=== PATIENT | female | born 1995 | race Caucasian/White ===

== ENCOUNTER 2018-10-03 20:27 | Emergency (ER) | payer OTHER ==
--- NOTE | 2018-10-03 20:46 | PDOC ---
Rapid Medical Evaluation Time Seen by Provider: 10/03/18 20:42 Medical Evaluation: Allergies Allergy/AdvReac Type Severity Reaction Status Date / Time No Known Allergies Allergy Verified 11/17/11 20:43 10/03/18 20:42 I have performed a brief in-person evaluation of this patient. The patient presents with a chief complaint of: "I think I have the flu", she c/ o lightheadedness, nasal congestion, runny nose, lack of focus since last night. No fever/chills, no NVD. 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 NO recent travel. Pt wants to get etsted for the flu Pertinent physical exam findings: in NAD, AAO X3. I have ordered the following: Flu swab The patient will proceed to the ED for further evaluation Discharge Disposition - Diagnosis Nasal congestion - Referrals - Patient Instructions - Post Discharge Activity
[2018-10-03 20:51] VITALS: BP 130/80; PULSE 81; TEMP 98.1; BMI 32.6
--- NOTE | 2018-10-03 21:12 | PDOC ---
History of Present Illness - General Chief Complaint: Cold Symptoms Stated Complaint: FLU Time Seen by Provider: 10/03/18 20:42 - History of Present Illness Initial Comments: 10/03/18 21:12 23-year-old female complains of nose congestion and cough times one day Past History - Past Medical History Allergies/Adverse Reactions: Allergies Allergy/AdvReac Type Severity Reaction Status Date / Time No Known Allergies Allergy Verified 10/03/18 20:45 Home Medications: Ambulatory Orders NK [No Known Home Medication] 10/03/18 Asthma: Yes COPD: No - Immunization History Immunization Up to Date: Yes - Suicide/Smoking/Psychosocial Hx Smoking Status: No Smoking History: Never smoked Have you smoked in the past 12 months: No Number of Cigarettes Smoked Daily: 0 Information on smoking cessation initiated: No Hx Alcohol Use: Yes (social) Drug/Substance Use Hx: No Review of Systems - Review of Systems Constitutional: No: Fever HEENTM: Yes: Nose Congestion Respiratory: Yes: Cough *Physical Exam - Vital Signs Last Vital Signs Temp Pulse Resp BP Pulse Ox 98.1 F 81 18 130/80 100 10/03/18 20:43 10/03/18 20:43 10/03/18 20:43 10/03/18 20:43 10/03/18 20:43 - Physical Exam Comments: 10/03/18 21:12 HEAD: NC/AT EYES: Conjuntiva clear Ears: Canals and TM's normal NOSE: No d/c THROAT: Moist mucous membrances, oral pharanx clear, uvula midline NECK: Supple without adenopathy CARDIAC: S1 S2 LUNGS: CTA Full and Equal breath sounds ABDOMEN: Soft NT ND MS: Full ROM in all joints without edema NEUROLOGIC: No gross sensory or motor deficits, NVID SKIN: Normal color and temperature no lesions or rashes Moderate Sedation - Procedure Monitoring Vital Signs: Procedure Monitoring Vital Signs Temperature 98.1 F 10/03/18 20:43 Pulse Rate 81 10/03/18 20:43 Respiratory Rate 18 10/03/18 20:43 Blood Pressure 130/80 10/03/18 20:43 O2 Sat by Pulse Oximetry (%) 100 10/03/18 20:43 *DC/Admit/Observation/Transfer Diagnosis at time of Disposition: Nasal congestion, Upper respiratory infection - Discharge Dispostion Disposition: HOME Condition at time of disposition: Stable Decision to Admit order: No - Referrals Referrals: Lynnette Guzman [Primary Care Provider] - - Patient Instructions Printed Discharge Instructions: DI for Viral Upper Respiratory Infection -- Adult Additional Instructions: Return to the emergency room should symptoms worsen or go unresolved. Please follow-up with your primary care physician in one to 2 days for further evaluation and treatment options. Tylenol and Motrin for for fever and body aches, Mucinex DM for cough. You can only take Motrin and Mucinex DM if you are not - Post Discharge Activity
== END 2018-10-03 21:27 | disposition home or self-care (01) ==
LOC: JER 20:27
DX: J06.9 Acute upper respiratory infection, unspecified (principal)
CPT/HCPCS: 87804; 99281-25

== ENCOUNTER 2019-01-16 19:36 | Emergency (ER) | payer BC, OTHER ==
[2019-01-16] MEDS ORDERED: IBUPROFEN 600 MG TABLET (FP) PO ONE ×2 (20:03→20:33)
--- NOTE | 2019-01-16 20:03 | PDOC ---
Rapid Medical Evaluation Time Seen by Provider: 01/16/19 20:01 Medical Evaluation: Allergies Allergy/AdvReac Type Severity Reaction Status Date / Time No Known Allergies Allergy Verified 10/03/18 20:45 01/16/19 20:02 The patient is a 23 y/o F who presents to the ED with 5 days of sore throat and swollen glands. Also admits to cough. No PMH Exam: Erythematous tonsils without exudate or edema Orders: Rapid strep, motrin Pt to proceed to the ED for further evaluation Discharge Disposition - Diagnosis Pharyngitis - Referrals - Patient Instructions - Post Discharge Activity
[2019-01-16 20:04] VITALS: BP 161/90; PULSE 87; TEMP 98; BMI 39.2
[2019-01-16] MEDS ORDERED: DEXAMETHASONE LIQUID 0.5 MG/5 ML 240 ML BULK BOTTLE PO ONE (20:32)
[2019-01-16] MEDS ORDERED: DEXAMETHASONE SOD PHOSPHATE 4 MG/1 ML VIAL ONE (20:33)
--- NOTE | 2019-01-16 20:33 | PDOC ---
History of Present Illness - General Chief Complaint: Sore Throat Stated Complaint: THROAT PAIN Time Seen by Provider: 01/16/19 20:01 - History of Present Illness Initial Comments: 01/16/19 20:33 23-year-old female without comorbidities presents for evaluation of sore throat 6 days no systemic symptoms Past History - Past Medical History Allergies/Adverse Reactions: Allergies Allergy/AdvReac Type Severity Reaction Status Date / Time No Known Allergies Allergy Verified 10/03/18 20:45 Home Medications: Ambulatory Orders NK [No Known Home Medication] 10/03/18 Asthma: Yes COPD: No - Immunization History Immunization Up to Date: Yes - Suicide/Smoking/Psychosocial Hx Smoking Status: No Smoking History: Unknown if ever smoked Have you smoked in the past 12 months: No Number of Cigarettes Smoked Daily: 0 Information on smoking cessation initiated: No Hx Alcohol Use: No Drug/Substance Use Hx: No Review of Systems - Review of Systems HEENTM: Yes: Throat Pain, Difficulty Swallowing *Physical Exam - Vital Signs Last Vital Signs Temp Pulse Resp BP Pulse Ox 98.0 F 87 16 161/90 100 01/16/19 20:02 01/16/19 20:02 01/16/19 20:02 01/16/19 20:02 01/16/19 20:02 - Physical Exam Comments: 01/16/19 20:33 HEAD: NC/AT EYES: Conjuntiva clear Ears: Canals and TM's normal NOSE: No d/c THROAT: Moist mucous membrances, oral pharanx erythemic without exudate, uvula midline NECK: Supple without adenopathy CARDIAC: S1 S2 LUNGS: CTA Full and Equal breath sounds ABDOMEN: Soft NT ND MS: Full ROM in all joints without edema NEUROLOGIC: No gross sensory or motor deficits, NVID SKIN: Normal color and temperature no lesions or rashes Medical Decision Making - Medical Decision Making 01/16/19 20:34 Will hold off on treatment for now based on length of symptoms prior to presentation. Rapid negative cx sent. *DC/Admit/Observation/Transfer Diagnosis at time of Disposition: Pharyngitis, Viral pharyngitis - Discharge Dispostion Disposition: HOME Condition at time of disposition: Stable Decision to Admit order: No - Referrals Referrals: Lynnette Guzman [Primary Care Provider] - - Patient Instructions Printed Discharge Instructions: Viral Pharyngitis, DI for Viral Pharyngitis Additional Instructions: Rapid strep was negative, culture was sent. He will given a long-acting steroid in the emergency room which will help with her pain. Should you require antibiotics we will call you. Please follow-up with your primary care physician in one to 2 days for further evaluation and treatment options. Tylenol for pain. Avoid anti-inflammatories such as Advil Motrin Aleve and ibuprofen. Warm salt water gargles 5-6 times a day will help with your throat pain. - Post Discharge Activity
== END 2019-01-16 20:47 | disposition home or self-care (01) ==
LOC: JERFT 19:36
DX: J02.8 Acute pharyngitis due to other specified organisms (principal); B97.89 Other viral agents as the cause of diseases classified elsewhere; J45.909 Unspecified asthma, uncomplicated
CPT/HCPCS: 87070; 87077; 87880; 99281-25

== ENCOUNTER 2020-03-03 17:12 | Emergency (ER) | payer BC, OTHER ==
[2020-03-03 17:24] VITALS: BP 157/86; PULSE 118; TEMP 99.5; BMI 31.1
--- NOTE | 2020-03-03 17:48 | PDOC ---
History of Present Illness - General Chief Complaint: Pain, Acute Stated Complaint: NAUSEA/L SIDE BACK/NECK /LEG PAIN/WEAKNESS Time Seen by Provider: 03/03/20 17:40 - History of Present Illness Initial Comments: 03/03/20 17:46 25 y/o F w/o CM on oral contraception presents for evaluation of nausea and diarrhea 3 episodes of watery stool today, no blood Past History - Medical History Allergies/Adverse Reactions: Allergies Allergy/AdvReac Type Severity Reaction Status Date / Time No Known Allergies Allergy Verified 03/03/20 17:20 Home Medications: Ambulatory Orders NK [No Known Home Medication] 10/03/18 Asthma: Yes COPD: No - Immunization History Immunization Up to Date: Yes - Psycho-Social/Smoking History Smoking Status: No Smoking History: Never smoked Have you smoked in the past 12 months: No Number of Cigarettes Smoked Daily: 0 - Substance Abuse Hx (Audit-C & DAST Scrn) How often the patient has a drink containing alcohol: Never Score: In Men: 4 or > Positive; In Women: 3 or > Positive: 0 Screen Result (Pos requires Nsg. Audit-10AR): Negative In the last yr the pt used illegal drug/Rx for NonMed reason: Yes Score: Yes response is considered Positive: 1 Screen Result (Positive result requires Nsg. DAST-10): Positive Review of Systems - Review of Systems Constitutional: Yes: Chills, Fever, Malaise, Night Sweats ABD/GI: Yes: Diarrhea, Nausea. No: Blood Streaked Bowels, Rectal Bleeding, Vomiting *Physical Exam - Vital Signs Last Vital Signs Temp Pulse Resp BP Pulse Ox 99.5 F 118 H 20 157/86 100 03/03/20 17:21 03/03/20 17:21 03/03/20 17:21 03/03/20 17:21 03/03/20 17:21 - Physical Exam General Appearance: Yes: Nourished, Appropriately Dressed. No: Apparent Distress HEENT: positive: Symmetrical Neck: positive: Supple Respiratory/Chest: positive: Normal Breath Sounds. negative: Respiratory Distress Cardiovascular: positive: Regular Rhythm Gastrointestinal/Abdominal: positive: Normal Bowel Sounds, Flat, Soft. negative: Tender, Organomegaly, Tenderness, Hepatomegaly, Spleenomegaly Musculoskeletal: positive: Normal Inspection Extremity: positive: Normal Inspection Integumentary: positive: Normal Color, Dry, Warm Neurologic: positive: bleacher groundwood pulp II-XII NML intact, Fully Oriented, Alert ED Treatment Course - LABORATORY CBC & Chemistry Diagram: 03/03/20 18:07 03/03/20 18:07 Medical Decision Making - Medical Decision Making 03/03/20 19:24 Supportive care for viral gastroenteritis follow-up with primary care physician in 1 to 2 days without fail Patient is feeling better after fluid and Tylenol I have reviewed the pathophysiology with the patient. They are in agreement with the treatment plan all questions were answered to their satisfaction. Understanding for follow-up without fail was also conveyed to the patient. Again they are in agreement. Discharge - Discharge Information Problems reviewed: Yes Clinical Impression/Diagnosis: Viral gastroenteritis - Follow up/Referral Referrals: Lynnette Guzman [Primary Care Provider] - - Patient Discharge Instructions Additional Instructions: Return to the emergency room for worsening symptoms and without fail follow-up with your primary care physician in 1 to 2 days for further evaluation and treatment options. - Post Discharge Activity
[2020-03-03] MEDS ORDERED: SODIUM CHLORIDE 0.9% 500 ML INFUS.BAG IV ONE (17:49)
[2020-03-03] MEDS ORDERED: ACETAMINOPHEN 1000 MG/100 ML VIAL (NON FORMULARY) IVPB ONE (17:49)
[2020-03-03] MEDS ORDERED: ACETAMINOPHEN INJECTION 100 ML IVPB ONE (17:59)
[2020-03-03 18:18] LABS: BASO % 0.6 % (0-2.0); EOS % 0.1 % (0-4.5); HEMATOCRIT 41.2 % (32.4-45.2); HEMOGLOBIN 13.5 GM/dL (10.7-15.3); LYMPH % 11.4 % (8-40); MCH 28.1 pg (25.7-33.7); MCHC 32.8 g/dl (32.0-36.0); MEAN CELL VOLUME 85.7 fl (80-96); MEAN PLT VOLUME 8.6 fl (7.5-11.1); MONO % 6.9 % (3.8-10.2); PLATELET COUNT 314 K/MM3 (134-434); RBC 4.81 M/mm3 (3.60-5.2); RDW 13.5 % (11.6-15.6); WHITE BLOOD COUNT 22.1 K/mm3 (4.0-10.0)
[2020-03-03 18:29] LABS: INR 1.11 (0.83-1.09); PROTHROMBIN TIME (PATIENT) 13.1 SEC (9.7-13.0)
[2020-03-03 18:47] LABS: PLATELET ESTIMATE ADEQUATE
[2020-03-03 18:50] LABS: ALBUMIN 3.8 g/dl (3.4-5.0); BILIRUBIN,TOTAL 1.9 mg/dL (0.2-1); BLOOD UREA NITROGEN 7.5 mg/dL (7-18); CALCIUM 9.8 mg/dL (8.5-10.1); CREATININE 0.9 mg/dL (0.55-1.3); POTASSIUM 4.3 mmol/L (3.5-5.1); TOT PROT 7.8 g/dl (6.4-8.2)
--- NOTE | 2020-03-04 10:13 | EKG ---
Test Reason : Blood Pressure : / mmHG Vent. Rate : 084 BPM Atrial Rate : 084 BPM P-R Int : 148 ms QRS Dur : 076 ms QT Int : 356 ms P-R-T Axes : 026 071 037 degrees QTc Int : 420 ms NORMAL SINUS RHYTHM WITH SINUS ARRHYTHMIA POSSIBLE LEFT ATRIAL ENLARGEMENT NONSPECIFIC ST ABNORMALITY ABNORMAL ECG NO PREVIOUS ECGS AVAILABLE Confirmed by Roger Trammell MD ([id number]) on 03/04/2020 10:12:41 AM Referred By: Confirmed By:Roger Trammell MD
== END 2020-03-03 20:42 | disposition home or self-care (01) ==
LOC: JER 17:12
PROC: 3E033GC Introduction of Other Therapeutic Substance into Peripheral Vein, Percutaneous Approach (ICD-10-PCS; principal; 2020-03-03)
DX: A08.4 Viral intestinal infection, unspecified (principal)
CPT/HCPCS: 36415; 80053; 83690; 84703; 85025; 85610; 93005; 93010; 96374; 99284-25; J0131

== ENCOUNTER 2020-03-06 13:39 | Inpatient (IN) | payer OTHER ==
[2020-03-06] MEDS ORDERED: SODIUM CHLORIDE 2,790 ML IV ONE (14:36)
[2020-03-06 15:25] LABS: BASO % 0.5 % (0-2.0); EOS % 0.1 % (0-4.5); HEMATOCRIT 35.8 % (32.4-45.2); HEMOGLOBIN 11.8 GM/dL (10.7-15.3); LYMPH % 12.1 % (8-40); MEAN PLT VOLUME 9.2 fl (7.5-11.1); MONO % 10.8 % (3.8-10.2); NEUT % 76.5 % (42.8-82.8); PLATELET COUNT 306 K/MM3 (134-434); RBC 4.21 M/mm3 (3.60-5.2); WHITE BLOOD COUNT 17.5 K/mm3 (4.0-10.0)
--- NOTE | 2020-03-06 15:30 | PDOC ---
History of Present Illness - General Chief Complaint: SIRS, Suspected/Possible Stated Complaint: FEVER/ABD PAIN Time Seen by Provider: 03/06/20 15:00 - History of Present Illness Initial Comments: 03/06/20 16:52 25yo F bouncebroxi p/w ABD pain, fever, and diarrhea. She had a democrat at home on Tuesday where she shared a hookah hose. Tuesday she came to ED w/ fever and ABD pain. Was sent home w/ tylenol after IV hydration. Tuesday she had several bouts of watery diarrhea. Tuesday she did not have a BM. Today she had a poorly f ormed solid BM. She has had a fever everyday this week. The ABD pain is LLQ, is diffuse and sharp, worst is 7/10, aggrevated by nothing and better w/ flatus and BM. She also reports increased burping and flatus this week. PMH: none PSH: none SHx: +tobacco (hookah) + marijuana, + EtOH use (drinks ~1bottle tequila on the nights she does drink, which she states is about 1day/week). Denies other ilicit drug use. +sexually active, on OCP. ROS +feverish +ABD pain PE general: NAD, AAO Lungs: CTAB CV: normal rate regular rhythm, no murmurs ABD: non-distended, no spider angioma, +bowel sounds, non-tender, no CVA tenderness. : non-inflamed, nonfriable cervical os, no exudate, no erythema in the canal or the os. No CMT or adnexal tenderness. A: 25yo bounceback female w/ fever, ABD pain, and diarrhea. Plan: CT ABD w/ contrast U preg, G/C, Blood Cx IV tylenol IV hydration w/ NSS. 03/06/20 17:05 03/06/20 18:41 Past History - Medical History Allergies/Adverse Reactions: Allergies Allergy/AdvReac Type Severity Reaction Status Date / Time No Known Allergies Allergy Verified 03/06/20 14:09 Home Medications: Ambulatory Orders Ertapenem Sodium [Ertapenem] 1 gm IJ DAILY #10 vial 03/11/20 Asthma: Yes COPD: No - Immunization History Immunization Up to Date: Yes - Psycho-Social/Smoking History Smoking Status: No Smoking History: Never smoked Have you smoked in the past 12 months: No Number of Cigarettes Smoked Daily: 0 *Physical Exam - Vital Signs Last Vital Signs Temp Pulse Resp BP Pulse Ox 101.7 F H 117 H 18 118/89 100 03/06/20 13:50 03/06/20 13:50 03/06/20 13:50 03/06/20 13:50 03/06/20 13:50 ED Treatment Course - LABORATORY CBC & Chemistry Diagram: 03/10/20 10:55 03/10/20 10:55 Discharge - Discharge Information Problems reviewed: Yes Clinical Impression/Diagnosis: Pyelonephritis Condition: Improved Disposition: HOME - Admission No - Follow up/Referral - Patient Discharge Instructions - Post Discharge Activity
[2020-03-06 15:32] LABS: INR 1.19 (0.83-1.09); PROTHROMBIN TIME (PATIENT) 14.1 SEC (9.7-13.0)
[2020-03-06 15:35] LABS: ACTIVATED PTT 31.2 SECONDS (25.2-36.5); EPI CELLS 20 /uL (0-25.1); HYALINE CASTS 3 /uL (0-3.1); URINE APPEARANCE CLEAR; URINE BACTERIA 218 /uL (0-1359); URINE BILIRUBIN 1+ (NEGATIVE); URINE COLOR DK YELLOW; URINE GLUCOSE (UA) TRACE (NEGATIVE); URINE KETONE TRACE (NEGATIVE); URINE LEUK ESTERASE TRACE (NEGATIVE); URINE NITRITE NEGATIVE (NEGATIVE); URINE PROTEIN 2+ (NEGATIVE); URINE RBC 42 /uL (0-23.9); URINE WBC 36 /uL (0-25.8)
[2020-03-06 15:53] LABS: ALBUMIN 3.2 g/dl (3.4-5.0); ALK PHOS 119 U/L (45-117); ANION GAP 8 MMOL/L (8-16); BILIRUBIN,TOTAL 1.1 mg/dL (0.2-1); BLOOD UREA NITROGEN 3.8 mg/dL (7-18); CALCIUM 9.2 mg/dL (8.5-10.1); CHLORIDE 101 mmol/L (98-107); CO2 25 mmol/L (21-32); CREATININE 0.8 mg/dL (0.55-1.3); GLUCOSE,RANDOM 109 mg/dL (74-106); POTASSIUM 3.6 mmol/L (3.5-5.1); SGOT/AST 13 U/L (15-37); SGPT/ALT 14 U/L (13-61); SODIUM 134 mmol/L (136-145); TOT PROT 7.2 g/dl (6.4-8.2)
[2020-03-06] MEDS ORDERED: ACETAMINOPHEN 1000 MG/100 ML VIAL (NON FORMULARY) IVPB ONE ×2 (17:00→21:18)
--- NOTE | 2020-03-06 17:03 | PDOC ---
Documentation entered by Thaddeus Benson SCRIBE, acting as scribe for Oliva Watson MD. Oliva Watson MD: This documentation has been prepared by the Inocente ellis Nirvannie, SCRIBE, under my direction and personally reviewed by me in its entirety. I confirm that the documentation accurately reflects all work, treatment, procedures, and medical decision making performed by me. Attending Attestation - Resident Resident Name: Dat Loo - ED Attending Attestation I have performed the following: I have examined & evaluated the patient, The case was reviewed & discussed with the resident, I agree w/resident's findings & plan, Exceptions are as noted - HPI HPI: 03/06/20 16:14 The patient is a 25 year old female with no significant past medical history who presents to the ED with 4 days of fevers and diarrhea. Per patient, her symptoms initially onset a few days after attending a dinner alliance party. Allergies: NKDA - Physicial Exam PE: 03/06/20 17:01 Agree with resident exam. Patient is alert and oriented and in no acute distress. lungs are clear. CV rrr no m/r/g abdomen soft, non tender, non distended no guarding or rebound. - Medical Decision Making 03/06/20 17:02 Pt presents to the ED complaining of abdominal pain and fever. Differential includes PID, less likely ectopic, UTI, other intraabdominal pathology. Discharge - Discharge Information Problems reviewed: Yes Clinical Impression/Diagnosis: Pyelonephritis Condition: Stable - Follow up/Referral - Patient Discharge Instructions - Post Discharge Activity
[2020-03-06 17:10] LABS: HCG,QUALITATIVE URINE NEGATIVE
[2020-03-06] MEDS ORDERED: NALOXONE HCL 0.4 MG/ML VIAL IVPUSH ONE (17:47)
[2020-03-06] MEDS ORDERED: ONDANSETRON 4 MG/2 ML VIAL IVPUSH ONE (17:49)
[2020-03-06] MEDS ORDERED: CEFTRIAXONE 1 GM in DEXTROSE 5%-WATER - 100 ML IVPB ONE (18:52)
[2020-03-06] MEDS ORDERED: CEFTRIAXONE 1 GM/50 ML BAG ONE (19:35)
--- NOTE | 2020-03-06 19:55 | PDOC ---
*Physical Exam - Vital Signs Last Vital Signs Temp Pulse Resp BP Pulse Ox 102.7 F H 95 H 16 132/69 100 03/06/20 17:00 03/06/20 17:00 03/06/20 17:00 03/06/20 17:00 03/06/20 17:00 Heart Score/ECG Review - ECG Intrepretation Comment:: 03/06/20 21:23 sinus at 94, nl axis, t wave inversions III which are nonspecific, no acute st c hanges ED Treatment Course - LABORATORY CBC & Chemistry Diagram: 03/06/20 15:00 03/06/20 15:00 - ADDITIONAL ORDERS Additional order review: Laboratory Results 03/06/20 03/06/20 03/06/20 15:00 15:00 15:00 PT with INR INR PTT (Actin FS) Sodium 134 L Potassium 3.6 Chloride 101 Carbon Dioxide 25 Anion Gap 8 BUN 3.8 L Creatinine 0.8 Est GFR (CKD-EPI)AfAm 119.60 Est GFR (CKD-EPI)NonAf 103.19 Random Glucose 109 H Lactic Acid 1.6 Calcium 9.2 Total Bilirubin 1.1 H AST 13 L ALT 14 Alkaline Phosphatase 119 H Troponin I < 0.02 Total Protein 7.2 Albumin 3.2 L Urine Color Dk yellow Urine Appearance Clear Urine pH 6.0 Ur Specific [place] 1.021 Urine Protein 2+ H Urine Glucose (UA) Trace Urine Ketones Trace H Urine Blood 1+ H Urine Nitrite Negative Urine Bilirubin 1+ H Urine Urobilinogen 2.0 H Ur Leukocyte Esterase Trace Urine WBC (Auto) 36 Urine RBC (Auto) 42 Urine Casts (Auto) 3 U Epithel Cells (Auto) 20 Urine Bacteria (Auto) 218 Urine HCG, Qual Negative 03/06/20 15:00 PT with INR 14.10 H INR 1.19 H PTT (Actin FS) 31.2 Sodium Potassium Chloride Carbon Dioxide Anion Gap BUN Creatinine Est GFR (CKD-EPI)AfAm Est GFR (CKD-EPI)NonAf Random Glucose Lactic Acid Calcium Total Bilirubin AST ALT Alkaline Phosphatase Troponin I Total Protein Albumin Urine Color Urine Appearance Urine pH Ur Specific [place] Urine Protein Urine Glucose (UA) Urine Ketones Urine Blood Urine Nitrite Urine Bilirubin Urine Urobilinogen Ur Leukocyte Esterase Urine WBC (Auto) Urine RBC (Auto) Urine Casts (Auto) U Epithel Cells (Auto) Urine Bacteria (Auto) Urine HCG, Qual 03/06/20 15:00 RBC 4.21 MCV 85.0 MCHC 33.0 RDW 13.0 MPV 9.2 Neutrophils % 76.5 Lymphocytes % 12.1 Monocytes % 10.8 H Eosinophils % 0.1 Basophils % 0.5 - Medications Given in the ED: ED Medications Discontinued Medications Generic Name Dose Route Start Last Admin Trade Name Stanley PRN Reason Stop Dose Admin Acetaminophen 1,000 mg 03/06/20 17:00 03/06/20 17:00 Ofirmev Injection - IVPB 03/06/20 17:01 1,000 mg ONCE ONE Administration Sodium Chloride 2,790 mls @ 1,395 mls/hr 03/06/20 14:36 03/06/20 15:13 Normal Saline - 30 ml/kg infuse over 2 hr (2790 ml) 03/06/20 16:35 1,395 mls/hr IV Administration ONCE ONE Ceftriaxone Sodium 1 gm/ 100 mls @ 200 mls/hr 03/06/20 18:52 03/06/20 19:47 Dextrose IVPB 03/06/20 19:21 200 mls/hr ONCE ONE Administration Naloxone HCl 0.4 mg 03/06/20 17:47 03/06/20 19:47 Narcan - IVPUSH 03/06/20 17:48 Not Given ONCE ONE Ondansetron HCl 4 mg 03/06/20 17:49 03/06/20 19:47 Zofran Injection IVPUSH 03/06/20 17:50 Not Given ONCE ONE Medical Decision Making - Medical Decision Making 03/06/20 21:22 a/p: 25yo female with abd pain -pt signed out pending labs and ct pt with LLQ pain -upreg neg +uti pt with diarrhea -on ct with pt with acute pyelo -iv abx ordered -resident discussed the case with emory who accepts pt to service Discharge - Discharge Information Problems reviewed: Yes Clinical Impression/Diagnosis: Pyelonephritis Condition: Fair - Admission Yes - Follow up/Referral - Patient Discharge Instructions - Post Discharge Activity
--- NOTE | 2020-03-06 20:16 | PDOC ---
*Physical Exam - Vital Signs Last Vital Signs Temp Pulse Resp BP Pulse Ox 102.7 F H 95 H 16 119/66 95 03/06/20 17:00 03/06/20 19:55 03/06/20 17:00 03/06/20 19:55 03/06/20 19:55 ED Treatment Course - LABORATORY CBC & Chemistry Diagram: 03/06/20 15:00 03/06/20 15:00 - ADDITIONAL ORDERS Additional order review: Laboratory Results 03/06/20 03/06/20 03/06/20 15:00 15:00 15:00 PT with INR INR PTT (Actin FS) Sodium 134 L Potassium 3.6 Chloride 101 Carbon Dioxide 25 Anion Gap 8 BUN 3.8 L Creatinine 0.8 Est GFR (CKD-EPI)AfAm 119.60 Est GFR (CKD-EPI)NonAf 103.19 Random Glucose 109 H Lactic Acid 1.6 Calcium 9.2 Total Bilirubin 1.1 H AST 13 L ALT 14 Alkaline Phosphatase 119 H Troponin I < 0.02 Total Protein 7.2 Albumin 3.2 L Urine Color Dk yellow Urine Appearance Clear Urine pH 6.0 Ur Specific [place] 1.021 Urine Protein 2+ H Urine Glucose (UA) Trace Urine Ketones Trace H Urine Blood 1+ H Urine Nitrite Negative Urine Bilirubin 1+ H Urine Urobilinogen 2.0 H Ur Leukocyte Esterase Trace Urine WBC (Auto) 36 Urine RBC (Auto) 42 Urine Casts (Auto) 3 U Epithel Cells (Auto) 20 Urine Bacteria (Auto) 218 Urine HCG, Qual Negative 03/06/20 15:00 PT with INR 14.10 H INR 1.19 H PTT (Actin FS) 31.2 Sodium Potassium Chloride Carbon Dioxide Anion Gap BUN Creatinine Est GFR (CKD-EPI)AfAm Est GFR (CKD-EPI)NonAf Random Glucose Lactic Acid Calcium Total Bilirubin AST ALT Alkaline Phosphatase Troponin I Total Protein Albumin Urine Color Urine Appearance Urine pH Ur Specific [place] Urine Protein Urine Glucose (UA) Urine Ketones Urine Blood Urine Nitrite Urine Bilirubin Urine Urobilinogen Ur Leukocyte Esterase Urine WBC (Auto) Urine RBC (Auto) Urine Casts (Auto) U Epithel Cells (Auto) Urine Bacteria (Auto) Urine HCG, Qual 03/06/20 15:00 RBC 4.21 MCV 85.0 MCHC 33.0 RDW 13.0 MPV 9.2 Neutrophils % 76.5 Lymphocytes % 12.1 Monocytes % 10.8 H Eosinophils % 0.1 Basophils % 0.5 - Medications Given in the ED: ED Medications Discontinued Medications Generic Name Dose Route Start Last Admin Trade Name Stanley PRN Reason Stop Dose Admin Acetaminophen 1,000 mg 03/06/20 17:00 03/06/20 17:00 Ofirmev Injection - IVPB 03/06/20 17:01 1,000 mg ONCE ONE Administration Sodium Chloride 2,790 mls @ 1,395 mls/hr 03/06/20 14:36 03/06/20 15:13 Normal Saline - 30 ml/kg infuse over 2 hr (2790 ml) 03/06/20 16:35 1,395 mls/hr IV Administration ONCE ONE Ceftriaxone Sodium 1 gm/ 100 mls @ 200 mls/hr 03/06/20 18:52 03/06/20 19:47 Dextrose IVPB 03/06/20 19:21 200 mls/hr ONCE ONE Administration Naloxone HCl 0.4 mg 03/06/20 17:47 03/06/20 19:47 Narcan - IVPUSH 03/06/20 17:48 Not Given ONCE ONE Ondansetron HCl 4 mg 03/06/20 17:49 03/06/20 19:47 Zofran Injection IVPUSH 03/06/20 17:50 Not Given ONCE ONE Medical Decision Making - Medical Decision Making 03/06/20 20:15 Pt received on s/o from Dr. Loo. Seen here earlier in the week for pyelo and given PO abx outpatient. D/w Dr. Dickson who accepts the patient for admission for IV abx. Discharge - Discharge Information Problems reviewed: Yes Clinical Impression/Diagnosis: Pyelonephritis Condition: Fair - Admission Yes - Follow up/Referral - Patient Discharge Instructions - Post Discharge Activity
--- NOTE | 2020-03-06 20:20 | PN ---
Teaching Attending Note Name of Resident: Jude Lopes ATTENDING PHYSICIAN STATEMENT I saw and evaluated the patient. I reviewed the resident's note and discussed the case with the resident. I agree with the resident's findings and plan as documented. SUBJECTIVE: Patient is a 25 year old woman with a PMH of Tobacco use, Alcohol abuse and Savana diego use who presents to the ER with abdominal pain, fever and diarrhea for four days. She had a democrat at home on Tuesday where she shared a hookah hose. Tuesday she came to ER fever, diarrhea and abdominal pain on 03/03/2020 and was discharged with a diagnosis of viral gastroenteritis on Tylenol after IV hydration. The pain is in the LLQ, diffuse and sharp with 7/10 intensity. No identifiable aggravating factor, but feels better with flatus and bowel movement. She also reports increased burping and flatus this week. Patient is sexually active on oral contraceptive pill. Unemployed and lives at home with parents. LMP was February 23, 2020. Denies alcohol, tobacco or illicit drug use. No sick contacts or recent travels. Family history is unremarkable. OBJECTIVE: Alert Vital Signs Period Temp Pulse Resp BP Sys/Caceres Pulse Ox Last 24 Hr 101.7 F-102.7 F 95-117 16-18 118-132/66-89 95-100 HEENT: No Jaundice, eye redness or discharge, PERRLA, EOMI. Normocephalic, atraumatic. External ears are normal and hearing is grossly intact. No nasal discharge. Neck: Supple, nontender. No palpable adenopathy or thyromegaly. No JVD Chest: Good effort. Clear to auscultation and percussion. Heart: Regular. No S3, rub or murmur Abdomen: Not distended, soft, diffuse tenderness most marked in the LLQ; no HSM. No rebound or guarding. Normal bowel sounds. Pelvic examination performed by the ER staff: Non-inflamed, nonfriable cervical os, no exudate, no erythema in the canal or the os. No CMT or adnexal tenderness. Ext: Peripheral pulses intact. No leg edema. Skin: Warm and dry. No petechiae, rash or ecchymosis. Neuro: Alert. Oriented x3. CN 2-12 grossly intact. Sensation grossly intact in all four extremities and DTR are symmetric. Psych: Appropriate mood and affect. Good insight. Home Medications Medication Instructions Recorded NK [No Known Home Medication] 10/03/18 Abnormal Lab Results 03/06/20 03/06/20 03/06/20 15:00 15:00 15:00 WBC 17.5 H Absolute Neuts (auto) 13.4 H Monocytes % 10.8 H PT with INR 14.10 H INR 1.19 H Sodium BUN Random Glucose Total Bilirubin AST Alkaline Phosphatase Albumin Urine Protein 2+ H Urine Ketones Trace H Urine Blood 1+ H Urine Bilirubin 1+ H Urine Urobilinogen 2.0 H 03/06/20 15:00 WBC Absolute Neuts (auto) Monocytes % PT with INR INR Sodium 134 L BUN 3.8 L Random Glucose 109 H Total Bilirubin 1.1 H AST 13 L Alkaline Phosphatase 119 H Albumin 3.2 L Urine Protein Urine Ketones Urine Blood Urine Bilirubin Urine Urobilinogen Current Medications Generic Name Dose Route Start Last Admin Trade Name Freq PRN Reason Stop Dose Admin Acetaminophen 650 mg 03/06/20 22:18 Tylenol - PO Q4H PRN PAIN LEVEL 7 - 10 Enoxaparin Sodium 40 mg 03/07/20 10:00 Lovenox - SQ DAILY FANTASMA Dextrose/Sodium Chloride 1,000 mls @ 83 mls/hr 03/06/20 22:30 D5-Ns - IV ASDIR FANTASMA Piperacillin Sod/Tazobactam 50 mls @ 100 mls/hr 03/06/20 22:45 Sod 3.375 gm/ Dextrose IVPB Q4H FANTASMA Protocol Piperacillin Sod/Tazobactam 50 mls @ 100 mls/hr 03/06/20 23:30 Sod 3.375 gm/ Dextrose IVPB 03/07/20 18:29 Q4H-IV FANTASMA ASSESSMENT AND PLAN: 1. Pyelonephritis/?Renal abscess - CT abdomen/pelvis with IV contrast showed left pyelonephritis with possible lower pole abscess. Sepsis workup done and STI panel sent. CXR shows cardiomegaly with no evidence of acute lung disease. ER staff prescribed Tylenol, Ceftriaxone, Zofran and IV NS for the patient. In view of possible renal abscess, will treat with IV Zosyn 3.375 g IV q 4 hours pending culture report. Consult ID. Will get HbA1c and send any diarrheal stool for stool studies including C.diff. EKG shows NSR at 94/minute and QTc [address]-T wave changes. Viral testing for COVID-19 ordered and patient placed on airborne, droplet and contact isolation. Will continue comprehensive care for all of patients comorbid conditions. 2. Hypoalbuminemia - Possibly due to combined effects of proteinuria, malnutrition and inflammation associated with comorbid conditions. Will ensure adequate dietary protein intake and also consult lithopone mill worker. 3. Tobacco Use Counseled on risks associated with tobacco use. We will provide patient all the necessary assistance to facilitate smoking cessation and prescribe Nicotine patch. 4. Obesity Counseled on the risks associated with obesity. Will provide patient all the necessary assistance, counseling and positive reinforcement to facilitate weight loss. Consult lithopone mill worker. 5. Alcohol abuse - Implement [facility] alcohol withdrawal protocol and do neurochecks. Implement seizure, fall and aspiration precautions. Treat with IV Banana bag, thiamine and folic acid. Monitor and replete electrolytes (Ca,Mg,K,P). Counseled patient about abstaining from alcohol. Will consult catalog specialist and refer to alcohol detox upon discharge. 6. DVT prophylaxis - Lovenox 40 mg SQ q 24 hours. 7. Advance directives - Full code
[2020-03-06] MEDS ORDERED: KETOROLAC TROMETHAMINE 15 MG/ML VIAL IVPUSH ONE (21:35)
[2020-03-06] MEDS ORDERED: PIPERACILLIN/TAZOB 2.25 GM 2.25 GM in DEXTROSE 5%-WATER - 50 ML IVPB SCH (22:30)
[2020-03-06] MEDS ORDERED: KETOROLAC TROMETHAMINE 15 MG/ML VIAL ONE (22:37)
[2020-03-06] MEDS ORDERED: ACETAMINOPHEN INJECTION 100 ML IVPB ONE (22:37)
[2020-03-06] MEDS ORDERED: PIPERACILLIN/TAZOB 3.375 GM 3.375 GM in DEXTROSE 5%-WATER - 50 ML IVPB SCH (22:45)
--- NOTE | 2020-03-06 22:46 | HP ---
CHIEF COMPLAINT: I have severe abdominal pain PCP: Lynnette Guzman HISTORY OF PRESENT ILLNESS: This is a 25 year old female with no significant PMH, presents with LLQ abdominal pain for 4 days. She describes the pain as cramping , non radiating, constant pain, 7/10 @ ED and 10/10 at worse. Abdominal pain is associated with fever, Diarrhea, headache, lightheadedness, and loss of Appetite. It is relieved with Tylenol and exacerbated with greasy foods. She also reports that she came to ED previously on Tuesday with fever, headache, and dizziness and was given fluids and Tylenol and sent home. She reports that on Tuesday she had 8 episodes of diarrhea in 2hrs, which resolved with over the counter anti diarrheal medications. Today she came to the ED for worsening of her LLQ pain. ER course was notable for: (1) Abdominal pain secondary to acute pyelonephritis (2) (3) Recent Travel: Denies PAST MEDICAL HISTORY: + STI (C. trachomatis) 2 years ago treated with Antibiotics PAST SURGICAL HISTORY: Denies Social History: Smoking: no cigarettes, occasional Hookah use at social gathering Alcohol: Occasional alcohol use at social gatherings Drugs: Denies CYLINDER FILLER: LMP: February 22 Currently sexually active, uses OCPs as her only form of contraception. Allergies No Known Allergies Allergy (Verified 03/06/20 14:09) HOME MEDICATIONS: Home Medications Medication Instructions Recorded NK [No Known Home Medication] 10/03/18 REVIEW OF SYSTEMS CONSTITUTIONAL: Present: Fever, chills, generalized weakness, loss of appetite Absent: weight change HEENT: Absent: rhinorrhea, nasal congestion, throat pain, CARDIOVASCULAR: Absent: chest pain, palpitations, peripheral edema RESPIRATORY: Absent: shortness of breath, dyspnea, wheezing GASTROINTESTINAL: present: Abdominal pain, Nausea, vomiting, Absent: abdominal distension, diarrhea, constipation GENITOURINARY: Absent: dysuria, frequency, urgency, hesitancy, hematuria, flank pain NEUROLOGIC: Present: headache Absent: focal weakness, dizziness, unsteady gait, bladder or bowel incontinence PHYSICAL EXAMINATION Vital Signs - 24 hr 03/06/20 03/06/20 03/06/20 13:50 14:25 17:00 Temperature 101.7 F H 102.7 F H Pulse Rate 117 H Pulse Rate [ 95 H Apical] Pulse Rate [ Left Brachial] Respiratory 18 16 Rate Blood Pressure 118/89 Blood Pressure 132/69 [Left Arm] O2 Sat by Pulse 100 99 100 Oximetry (%) 03/06/20 19:55 Temperature Pulse Rate Pulse Rate [ Apical] Pulse Rate [ 95 H Left Brachial] Respiratory Rate Blood Pressure Blood Pressure 119/66 [Left Arm] O2 Sat by Pulse 95 Oximetry (%) GENERAL: Awake, alert, and fully oriented, in no acute distress. HEAD: Normal with no signs of trauma. EYES: Pupils equal, round and reactive to light, extraocular movements intact, sclera anicteric, conjunctiva clear. EARS, NOSE, THROAT: nares patent, oropharynx clear without exudates. Moist mucous membranes. LUNGS: Breath sounds equal, clear to auscultation bilaterally. No wheezes, and no crackles. No accessory muscle use. HEART: Regular rate and rhythm, normal S1 and S2 without murmur, rub or gallop. ABDOMEN: Soft, nontender to light palpation, but diffuse tenderness to deep palpationin all 4 Q, not distended, normoactive bowel sounds, no guarding, no rebound, no masses. + CVA tenderness UPPER EXTREMITIES: 2+ pulses, warm, well-perfused. No cyanosis. No peripheral edema. LOWER EXTREMITIES: 2+ pulses, warm, well-perfused. No calf tenderness. No peripheral edema. NEUROLOGICAL: Cranial nerves II-XII intact. Normal speech. Normal gait. PSYCHIATRIC: Cooperative. Good eye contact. Appropriate mood and affect. SKIN: Warm, dry, no rashes or lesions noted, normal capillary refill. Laboratory Results - last 24 hr 03/06/20 03/06/20 03/06/20 15:00 15:00 15:00 WBC 17.5 H RBC 4.21 Hgb 11.8 Hct 35.8 MCV 85.0 MCH 28.0 MCHC 33.0 RDW 13.0 Plt Count 306 MPV 9.2 Absolute Neuts (auto) 13.4 H Neutrophils % 76.5 Lymphocytes % 12.1 Monocytes % 10.8 H Eosinophils % 0.1 Basophils % 0.5 Nucleated RBC % 0 PT with INR 14.10 H INR 1.19 H PTT (Actin FS) 31.2 Sodium Potassium Chloride Carbon Dioxide Anion Gap BUN Creatinine Est GFR (CKD-EPI)AfAm Est GFR (CKD-EPI)NonAf Random Glucose Lactic Acid Calcium Total Bilirubin AST ALT Alkaline Phosphatase Troponin I Total Protein Albumin Urine Color Dk yellow Urine Appearance Clear Urine pH 6.0 Ur Specific [place] 1.021 Urine Protein 2+ H Urine Glucose (UA) Trace Urine Ketones Trace H Urine Blood 1+ H Urine Nitrite Negative Urine Bilirubin 1+ H Urine Urobilinogen 2.0 H Ur Leukocyte Esterase Trace Urine WBC (Auto) 36 Urine RBC (Auto) 42 Urine Casts (Auto) 3 U Epithel Cells (Auto) 20 Urine Bacteria (Auto) 218 Urine HCG, Qual Negative 03/06/20 03/06/20 03/06/20 15:00 15:00 20:13 WBC RBC Hgb Hct MCV MCH MCHC RDW Plt Count MPV Absolute Neuts (auto) Neutrophils % Lymphocytes % Monocytes % Eosinophils % Basophils % Nucleated RBC % PT with INR INR PTT (Actin FS) Sodium 134 L Potassium 3.6 Chloride 101 Carbon Dioxide 25 Anion Gap 8 BUN 3.8 L Creatinine 0.8 Est GFR (CKD-EPI)AfAm 119.60 Est GFR (CKD-EPI)NonAf 103.19 Random Glucose 109 H Lactic Acid 1.6 Calcium 9.2 Total Bilirubin 1.1 H AST 13 L ALT 14 Alkaline Phosphatase 119 H Troponin I < 0.02 Total Protein 7.2 Albumin 3.2 L Urine Color Urine Appearance Urine pH Ur Specific [place] Urine Protein Urine Glucose (UA) Urine Ketones Urine Blood Urine Nitrite Urine Bilirubin Urine Urobilinogen Ur Leukocyte Esterase Urine WBC (Auto) Urine RBC (Auto) Urine Casts (Auto) U Epithel Cells (Auto) Urine Bacteria (Auto) Urine HCG, Qual Negative ASSESSMENT/PLAN: This is a 25 Years old Female with no significant PMH presented with 4 days of LLQ abdominal pain associated with fever/chills, diarrhea, N/V headache and lightheadedness. Her WBC count was elevated, 17.5. CT abd/pelvis was significant for acute left sided pyelonephritis with a possible left lower pole renal cortex abscess. She was admitted for treatment and management of acute pyelonephritis #Acute pylonephritis with possible abscess Assessment: - Patient presented with 4 days of worsening abdominal pain - Physical exam was significant for + CVA tenderness - CT abd/Pelvis: Acute left-sided pyelonephritis is noted. A 1 cm hypodense focus is seen within the left lower pole renal cortex medially which may be on the basis of somewhat more prominent versus and incipient abscess. - Elevated WBC of 17.5 Plan: - In ED patient was given Ceftriaxone Sodium 1 gm - Initiated Zosyn 3.375 Q4H, for the coverage of possible Abscess - Urine Culture and Blood Culture 2x pending - Pending STI panel - ID Palma Nolasco was consulted for further recommendations, will F/U with recs - Ordered Hba1c - If she continues to have diarrhea, send for stool studies. #DVT prophylaxis: Lovenox 40 mg #Disposition: Admit to Med-Surg IVF: D5W-NS @ 83mls/Hr DVT: Lovenox 40 mg GI: none Diet: Regular Consults: ID, Palma Nolasco Visit type - Emergency Visit Emergency Visit: Yes ED Registration Date: 03/06/20 Care time: The patient presented to the Emergency Department on the above date and was hospitalized for further evaluation of their emergent condition. - New Patient This patient is new to me today: Yes Date on this admission: 03/08/20 - Critical Care Critical Care patient: No ATTENDING PHYSICIAN STATEMENT I saw and evaluated the patient. I reviewed the resident's note and discussed the case with the resident. I agree with the resident's findings and plan as documented. SUBJECTIVE: OBJECTIVE: ASSESSMENT AND PLAN:
[2020-03-06] MEDS ORDERED: PIPERACILLIN/TAZOB 3.375 GM 3.375 GM/50 ML BAG IVPB ONE (22:55)
[2020-03-06] MEDS: DEXTROSE 5%-NORMAL SALINE 1,000 ML IV SCH (23:38)
[2020-03-06] MEDS: PIPERACILLIN/TAZOB 3.375 GM 3.375 GM in DEXTROSE 5%-WATER - 50 ML IVPB SCH (23:39)
[2020-03-07 01:49] VITALS: BMI 35.6
[2020-03-07] MEDS ORDERED: DEXTROSE 5%-WATER - 50 ML IVPB ONE ×5 (03:15→16:57)
[2020-03-07] MEDS ORDERED: PIPERACILLIN/TAZOBACTAM 3.375 GM VIAL IVPB ONE ×5 (03:15→16:57)
[2020-03-07] MEDS: PIPERACILLIN/TAZOB 3.375 GM 3.375 GM in DEXTROSE 5%-WATER - 50 ML IVPB SCH ×5 (03:27→17:05)
[2020-03-07] MEDS: ACETAMINOPHEN 325 MG TABLET (FP) PO PRN ×3 (06:39→20:41)
[2020-03-07] MEDS ORDERED: PNEUMOC 13-VAL CONJ-DIP CRM/PF 0.5 ML DISP.SYRIN IM ONE (07:30)
[2020-03-07 07:55] LABS: BASO % 0.3 % (0-2.0); EOS % 0.9 % (0-4.5); HEMATOCRIT 30.5 % (32.4-45.2); HEMOGLOBIN 9.9 GM/dL (10.7-15.3); LYMPH % 24.1 % (8-40); MCH 27.6 pg (25.7-33.7); MCHC 32.6 g/dl (32.0-36.0); MEAN CELL VOLUME 84.7 fl (80-96); MEAN PLT VOLUME 8.7 fl (7.5-11.1); MONO % 10.3 % (3.8-10.2); NEUT % 64.4 % (42.8-82.8); PLATELET COUNT 270 K/MM3 (134-434); RDW 13.3 % (11.6-15.6); WHITE BLOOD COUNT 12.4 K/mm3 (4.0-10.0)
[2020-03-07 08:13] LABS: ALBUMIN 2.6 g/dl (3.4-5.0); BLOOD UREA NITROGEN 4.2 mg/dL (7-18); CALCIUM 8.3 mg/dL (8.5-10.1); CREATININE 0.7 mg/dL (0.55-1.3); MAGNESIUM 2.2 mg/dL (1.8-2.4); PHOSPHOROUS 3.4 mg/dL (2.5-4.9); POTASSIUM 3.7 mmol/L (3.5-5.1); TOT PROT 6.2 g/dl (6.4-8.2)
--- NOTE | 2020-03-07 09:30 | PN ---
Teaching Attending Note Name of Resident: Pallavi Toscano ATTENDING PHYSICIAN STATEMENT I saw and evaluated the patient. I reviewed the resident's note and discussed the case with the resident. I agree with the resident's findings and plan as documented. SUBJECTIVE: Patient is a 25yof with a PMHx of Tobacco use, Alcohol abuse and Marijuana use who presents to the ER with abdominal pain, fever and diarrhea for four days. Patient is feeling better today. OBJECTIVE: Vital Signs Temperature 98.5 F 03/07/20 09:03 Pulse Rate 81 03/07/20 09:03 Respiratory Rate 16 03/07/20 09:03 Blood Pressure 115/56 L 03/07/20 09:03 O2 Sat by Pulse Oximetry (%) 99 03/07/20 00:30 Initial Vital Signs Temp Pulse Resp BP Pulse Ox 101.7 F H 117 H 18 118/89 100 03/06/20 13:50 03/06/20 13:50 03/06/20 13:50 03/06/20 13:50 03/06/20 13:50 PE: as per resident's note CBCD WBC 12.4 K/mm3 (4.0-10.0) H 03/07/20 06:30 RBC 3.60 M/mm3 (3.60-5.2) 03/07/20 06:30 Hgb 9.9 GM/dL (10.7-15.3) L 03/07/20 06:30 Hct 30.5 % (32.4-45.2) L 03/07/20 06:30 MCV 84.7 fl (80-96) 03/07/20 06:30 MCHC 32.6 g/dl (32.0-36.0) 03/07/20 06:30 RDW 13.3 % (11.6-15.6) 03/07/20 06:30 Plt Count 270 K/MM3 (134-434) 03/07/20 06:30 MPV 8.7 fl (7.5-11.1) 03/07/20 06:30 CMP Sodium 138 mmol/L (136-145) 03/07/20 06:30 Potassium 3.7 mmol/L (3.5-5.1) 03/07/20 06:30 Chloride 106 mmol/L (98-107) 07/03/20 06:30 Carbon Dioxide 21 mmol/L (21-32) 03/07/20 06:30 Anion Gap 11 MMOL/L (8-16) 03/07/20 06:30 BUN 4.2 mg/dL (7-18) L 03/07/20 06:30 Creatinine 0.7 mg/dL (0.55-1.3) 03/07/20 06:30 Random Glucose 108 mg/dL (74-106) H 03/07/20 06:30 Calcium 8.3 mg/dL (8.5-10.1) L 03/07/20 06:30 Total Bilirubin 1.0 mg/dL (0.2-1) 03/07/20 06:30 AST 11 U/L (15-37) L 03/07/20 06:30 ALT 12 U/L (13-61) L 03/07/20 06:30 Alkaline Phosphatase 99 U/L (45-117) 03/07/20 06:30 Total Protein 6.2 g/dl (6.4-8.2) L 03/07/20 06:30 Albumin 2.6 g/dl (3.4-5.0) L 03/07/20 06:30 CARDIAC ENZYMES Troponin I < 0.02 ng/ml (0.00-0.05) 03/06/20 15:00 Current Medications Generic Name Dose Route Start Last Admin Trade Name Freq PRN Reason Stop Dose Admin Acetaminophen 650 mg 03/06/20 22:18 03/07/20 06:39 Tylenol - PO 650 mg Q4H PRN Administration PAIN LEVEL 7 - 10 Enoxaparin Sodium 40 mg 03/07/20 10:00 Lovenox - SQ DAILY FANTASMA Dextrose/Sodium Chloride 1,000 mls @ 83 mls/hr 03/06/20 22:30 03/06/20 23:38 D5-Ns - IV 83 mls/hr ASDIR FANTASMA Administration Piperacillin Sod/Tazobactam 50 mls @ 100 mls/hr 03/06/20 22:45 Sod 3.375 gm/ Dextrose IVPB Q4H FANTASMA Protocol Piperacillin Sod/Tazobactam 50 mls @ 100 mls/hr 03/06/20 23:30 03/07/20 06:32 Sod 3.375 gm/ Dextrose IVPB 03/07/20 18:29 100 mls/hr Q4H-IV FANTASMA Administration Home Medications Medication Instructions Recorded NK [No Known Home Medication] 10/03/18 Microbiology 03/06/20 15:00 Urine - Urine Clean Catch Urine Culture - Preliminary Lactose Fermenting Neg Bacilli CT Abdomen and pelvis: acute left sided pyelonephritis is noted. 1cm hypodense focus is seen within the left lower pole renal cortex medially which may be an abscess. Assessment/Plan: This is a 25yof with no significant PMHx admitted for acute left sided pyelonephritis with possible left lower pole renal cortex abscess. Presented with sepsis. # Acute sepsis : rodas cx, follow the result, GC cx pending #Acute pylonephritis with possible abscess on Zosyn IV , ID on the case # Acute UTI on Zosyn DVT prophylaxis: Lovenox 40 mg
[2020-03-07] MEDS: ENOXAPARIN NA (PORCINE) 40 MG/0.4 ML DISP.SYRIN SQ SCH (09:46)
--- NOTE | 2020-03-07 10:48 | EKG ---
Test Reason : Blood Pressure : / mmHG Vent. Rate : 094 BPM Atrial Rate : 094 BPM P-R Int : 142 ms QRS Dur : 082 ms QT Int : 320 ms P-R-T Axes : 029 073 029 degrees QTc Int : 400 ms NORMAL SINUS RHYTHM NONSPECIFIC ST ABNORMALITY WHEN COMPARED WITH ECG OF 03-MAR-2020 19:51, NO SIGNIFICANT CHANGE WAS FOUND Confirmed by MARK ORO MD ([id number]) on 03/07/2020 10:48:20 AM Referred By: Confirmed By:MARK ORO MD
[2020-03-07] MEDS: DEXTROSE 5%-NORMAL SALINE 1,000 ML IV SCH ×2 (13:17→22:22)
--- NOTE | 2020-03-07 13:33 | PN ---
Physical Exam: SUBJECTIVE: Patient seen and examined bedside. She was sitting up eating in no acute distress. She said her pain is well controlled. OBJECTIVE: Vital Signs Vital Signs - 24 hr 03/06/20 03/06/20 13:50 17:00 Temperature 101.7 F H 102.7 F H Pulse Rate 117 H Pulse Rate [ 95 H Apical] Pulse Rate [ Left Brachial] Respiratory 18 16 Rate Blood Pressure 118/89 Blood Pressure 132/69 [Left Arm] O2 Sat by Pulse 100 100 Oximetry (%) 03/07/20 03/07/20 00:30 05:25 Temperature 99.0 F 98.7 F Pulse Rate 86 78 Pulse Rate [ Apical] Pulse Rate [ Left Brachial] Respiratory 16 16 Rate Blood Pressure 114/62 125/60 Blood Pressure [Left Arm] O2 Sat by Pulse 99 Oximetry (%) GENERAL: The patient is awake, alert, and fully oriented, in no acute distress. LUNGS: CTL BL HEART: Regular rate and rhythm, S1, S2 ABDOMEN: Tender to palpation in LLQ, no CVA tenderness EXTREMITIES: 2+ pulses, warm, well-perfused, no edema. SKIN: Warm, dry, normal turgor, no rashes or lesions noted Laboratory Results Laboratory Last Values WBC 12.4 K/mm3 (4.0-10.0) H 03/07/20 06:30 RBC 3.60 M/mm3 (3.60-5.2) 03/07/20 06:30 Hgb 9.9 GM/dL (10.7-15.3) L 03/07/20 06:30 Hct 30.5 % (32.4-45.2) L 03/07/20 06:30 MCV 84.7 fl (80-96) 03/07/20 06:30 MCH 27.6 pg (25.7-33.7) 03/07/20 06:30 MCHC 32.6 g/dl (32.0-36.0) 03/07/20 06:30 RDW 13.3 % (11.6-15.6) 03/07/20 06:30 Plt Count 270 K/MM3 (134-434) 03/07/20 06:30 MPV 8.7 fl (7.5-11.1) 03/07/20 06:30 Absolute Neuts (auto) 8.0 K/mm3 (1.5-8.0) 03/07/20 06:30 Neutrophils % 64.4 % (42.8-82.8) 03/07/20 06:30 Lymphocytes % 24.1 % (8-40) D 03/07/20 06:30 Monocytes % 10.3 % (3.8-10.2) H 03/07/20 06:30 Eosinophils % 0.9 % (0-4.5) D 03/07/20 06:30 Basophils % 0.3 % (0-2.0) 03/07/20 06:30 Nucleated RBC % 0 % (0-0) 03/07/20 06:30 PT with INR 14.10 SEC (9.7-13.0) H 03/06/20 15:00 INR 1.19 (0.83-1.09) H 03/06/20 15:00 PTT (Actin FS) 31.2 SECONDS (25.2-36.5) 03/06/20 15:00 Sodium 138 mmol/L (136-145) 03/07/20 06:30 Potassium 3.7 mmol/L (3.5-5.1) 03/07/20 06:30 Chloride 106 mmol/L (98-107) 03/07/20 06:30 Carbon Dioxide 21 mmol/L (21-32) 03/07/20 06:30 Anion Gap 11 MMOL/L (8-16) 03/07/20 06:30 BUN 4.2 mg/dL (7-18) L 03/07/20 06:30 Creatinine 0.7 mg/dL (0.55-1.3) 03/07/20 06:30 Est GFR (CKD-EPI)AfAm 140.55 03/07/20 06:30 Est GFR (CKD-EPI)NonAf 121.27 03/07/20 06:30 Random Glucose 108 mg/dL (74-106) H 03/07/20 06:30 Hemoglobin A1c % 5.2 % (4.2-6.3) 03/07/20 06:30 Lactic Acid 1.6 mmol/L (0.4-2.0) 03/06/20 15:00 Calcium 8.3 mg/dL (8.5-10.1) L 03/07/20 06:30 Phosphorus 3.4 mg/dL (2.5-4.9) 03/07/20 06:30 Magnesium 2.2 mg/dL (1.8-2.4) 03/07/20 06:30 Total Bilirubin 1.0 mg/dL (0.2-1) 03/07/20 06:30 AST 11 U/L (15-37) L 03/07/20 06:30 ALT 12 U/L (13-61) L 03/07/20 06:30 Alkaline Phosphatase 99 U/L (45-117) 03/07/20 06:30 Troponin I < 0.02 ng/ml (0.00-0.05) 03/06/20 15:00 Total Protein 6.2 g/dl (6.4-8.2) L 03/07/20 06:30 Albumin 2.6 g/dl (3.4-5.0) L 03/07/20 06:30 Urine Color Dk yellow 03/06/20 15:00 Urine Appearance Clear 03/06/20 15:00 Urine pH 6.0 (5.0-8.0) 03/06/20 15:00 Ur Specific [place] 1.021 (1.010-1.035) 03/06/20 15:00 Urine Protein 2+ (NEGATIVE) H 03/06/20 15:00 Urine Glucose (UA) Trace (NEGATIVE) 03/06/20 15:00 Urine Ketones Trace (NEGATIVE) H 03/06/20 15:00 Urine Blood 1+ (NEGATIVE) H 03/06/20 15:00 Urine Nitrite Negative (NEGATIVE) 03/06/20 15:00 Urine Bilirubin 1+ (NEGATIVE) H 03/06/20 15:00 Urine Urobilinogen 2.0 mg/dL (0.2-1.0) H 03/06/20 15:00 Ur Leukocyte Esterase Trace (NEGATIVE) 03/06/20 15:00 Urine WBC (Auto) 36 /uL (0-25.8) 03/06/20 15:00 Urine RBC (Auto) 42 /uL (0-23.9) 03/06/20 15:00 Urine Casts (Auto) 3 /uL (0-3.1) 03/06/20 15:00 U Epithel Cells (Auto) 20 /uL (0-25.1) 03/06/20 15:00 Urine Bacteria (Auto) 218 /uL (0-1359) 03/06/20 15:00 Urine HCG, Qual Negative 03/06/20 20:13 Active Medications Generic Name Dose Route Start Last Admin Trade Name Freq PRN Reason Stop Dose Admin Acetaminophen 650 mg 03/06/20 22:18 03/07/20 06:39 Tylenol - PO 650 mg Q4H PRN Administration PAIN LEVEL 7 - 10 Enoxaparin Sodium 40 mg 03/07/20 10:00 03/07/20 09:46 Lovenox - SQ 40 mg DAILY FANTASMA Administration Dextrose/Sodium Chloride 1,000 mls @ 83 mls/hr 03/06/20 22:30 03/06/20 23:38 D5-Ns - IV 83 mls/hr ASDIR FANTASMA Administration Piperacillin Sod/Tazobactam 50 mls @ 100 mls/hr 03/06/20 22:45 Sod 3.375 gm/ Dextrose IVPB Q4H FANTASMA Protocol Piperacillin Sod/Tazobactam 50 mls @ 100 mls/hr 03/06/20 23:30 03/07/20 09:45 Sod 3.375 gm/ Dextrose IVPB 03/07/20 18:29 100 mls/hr Q4H-IV FANTASMA Administration Imaging: CT: 1 cm hypodense focus is seen within the left lower pole renal cortex medially which may be on the basis of somewhat more prominent versus and incipient abscess. ASSESSMENT/PLAN: 25 yo Female with no significant PMH presented with 4 days of LLQ abdominal pain, fever/chills, diarrhea, N/V, headache and lightheadedness. Her WBC count was elevated, 17.5. CT abd/pelvis was significant for acute left sided pyelonephritis with a possible abscess. She was admitted for treatment and management of acute pyelonephritis Acute pylonephritis with possible abscess - Elevated WBC of 17.5 >>> 12.4 - I dose Ceftriaxone Sodium 1 gm in ED - Zosyn 3.375 Q4H, Day 1 - Urine Culture and Blood Culture 2x pending - Pending STI panel - Covid Pending - ID Palma Nolasco was consulted for further recommendations, will F/U with recs - If she continues to have diarrhea, send for stool studies. DVT prophylaxis: Lovenox 40 mg FEN: IVF: D5W-NS @ 83mls/Hr Diet: Regular Disposition: Continue to monitor on Med-Surg Consults: JUAN DANIEL, Palma Nolasco Visit type - Emergency Visit Emergency Visit: No - New Patient This patient is new to me today: Yes Date on this admission: 03/12/20 - Critical Care Critical Care patient: No - Discharge Referral Referred to [facility] Med [facility] Yes ATTENDING PHYSICIAN STATEMENT I saw and evaluated the patient. I reviewed the resident's note and discussed the case with the resident. I agree with the resident's findings and plan as documented. SUBJECTIVE: OBJECTIVE: ASSESSMENT AND PLAN:
--- NOTE | 2020-03-08 00:01 | PN ---
Progress Note (short form) - Note Progress Note: ID CONSULT DICTATED
[2020-03-08] MEDS ORDERED: PIPERACILLIN/TAZOBACTAM 3.375 GM VIAL IVPB ONE ×2 (02:20→10:11)
[2020-03-08] MEDS ORDERED: DEXTROSE 5%-WATER - 50 ML IVPB ONE ×2 (02:20→10:11)
[2020-03-08] MEDS: PIPERACILLIN/TAZOB 3.375 GM 3.375 GM in DEXTROSE 5%-WATER - 50 ML IVPB SCH ×2 (02:25→10:34)
[2020-03-08] MEDS: DEXTROSE 5%-NORMAL SALINE 1,000 ML IV SCH ×3 (03:09→22:33)
[2020-03-08] MEDS: ACETAMINOPHEN 325 MG TABLET (FP) PO PRN (06:43)
[2020-03-08 08:48] LABS: BASO % 0.4 % (0-2.0); EOS % 1.2 % (0-4.5); HEMATOCRIT 26.7 % (32.4-45.2); HEMOGLOBIN 8.9 GM/dL (10.7-15.3); MCH 28.2 pg (25.7-33.7); MCHC 33.4 g/dl (32.0-36.0); MEAN CELL VOLUME 84.7 fl (80-96); MEAN PLT VOLUME 8.4 fl (7.5-11.1); MONO % 9.1 % (3.8-10.2); NEUT % 67.3 % (42.8-82.8); PLATELET COUNT 279 K/MM3 (134-434); RBC 3.15 M/mm3 (3.60-5.2); RDW 13.3 % (11.6-15.6); WHITE BLOOD COUNT 10.3 K/mm3 (4.0-10.0)
[2020-03-08 09:06] LABS: POTASSIUM 3.8 mmol/L (3.5-5.1)
[2020-03-08 09:11] LABS: BLOOD UREA NITROGEN 3.5 mg/dL (7-18); CALCIUM 8.8 mg/dL (8.5-10.1); CREATININE 0.6 mg/dL (0.55-1.3); MAGNESIUM 2.3 mg/dL (1.8-2.4); PHOSPHOROUS 3.5 mg/dL (2.5-4.9)
[2020-03-08] MEDS: ENOXAPARIN NA (PORCINE) 40 MG/0.4 ML DISP.SYRIN SQ SCH (11:15)
--- NOTE | 2020-03-08 12:29 | PN ---
Progress Note (short form) - Note Progress Note: Patient is feeling better with no acute distress. no fever or chill, no shorteness breath, c/o mild low back pain Vital Signs Temperature 98.2 F 03/08/20 05:00 Pulse Rate 88 03/08/20 05:00 Respiratory Rate 15 03/08/20 05:00 Blood Pressure 138/76 03/08/20 05:00 O2 Sat by Pulse Oximetry (%) 100 03/08/20 09:00 GENERAL: The patient is awake, alert, and fully oriented, in no acute distress. HEAD: Normal with no signs of trauma. EYES: PERRL, extraocular movements intact, sclera anicteric, conjunctiva clear. ENT: Ears normal, oropharynx clear without exudates, moist mucous membranes. NECK: Trachea midline, full range of motion, supple. LUNGS: Breath sounds equal, clear to auscultation bilaterally, no wheezes, no crackles, no accessory muscle use. HEART: Regular rate and rhythm, S1, S2 without murmur, rub or gallop. ABDOMEN: Soft, nontender, nondistended, normoactive bowel sounds, no guarding, no rebound, no hepatosplenomegaly, no masses. EXTREMITIES: 2+ pulses, warm, well-perfused, no edema. NEUROLOGICAL: Cranial nerves II through XII grossly intact. Normal speech, gait not observed. PSYCH: Normal mood, normal affect. SKIN: Warm, dry, normal turgor, no rashes or lesions noted NO CVA tenderness. CBCD WBC 10.3 K/mm3 (4.0-10.0) H 03/08/20 08:28 RBC 3.15 M/mm3 (3.60-5.2) L 03/08/20 08:28 Hgb 8.9 GM/dL (10.7-15.3) L 03/08/20 08:28 Hct 26.7 % (32.4-45.2) L 03/08/20 08:28 MCV 84.7 fl (80-96) 03/08/20 08:28 MCHC 33.4 g/dl (32.0-36.0) 03/08/20 08:28 RDW 13.3 % (11.6-15.6) 03/08/20 08:28 Plt Count 279 K/MM3 (134-434) 03/08/20 08:28 MPV 8.4 fl (7.5-11.1) 03/08/20 08:28 CMP Sodium 137 mmol/L (136-145) 03/08/20 08:28 Potassium 3.8 mmol/L (3.5-5.1) 03/08/20 08:28 Chloride 108 mmol/L (98-107) H 03/08/20 08:28 Carbon Dioxide 24 mmol/L (21-32) 03/08/20 08:28 Anion Gap 6 MMOL/L (8-16) L 03/08/20 08:28 BUN 3.5 mg/dL (7-18) L 03/08/20 08:28 Creatinine 0.6 mg/dL (0.55-1.3) 03/08/20 08:28 Random Glucose 120 mg/dL (74-106) H 03/08/20 08:28 Calcium 8.8 mg/dL (8.5-10.1) 03/08/20 08:28 Total Bilirubin 1.0 mg/dL (0.2-1) 03/07/20 06:30 AST 11 U/L (15-37) L 03/07/20 06:30 ALT 12 U/L (13-61) L 03/07/20 06:30 Alkaline Phosphatase 99 U/L (45-117) 03/07/20 06:30 Total Protein 6.2 g/dl (6.4-8.2) L 03/07/20 06:30 Albumin 2.6 g/dl (3.4-5.0) L 03/07/20 06:30 CARDIAC ENZYMES Troponin I < 0.02 ng/ml (0.00-0.05) 03/06/20 15:00 Current Medications Generic Name Dose Route Start Last Admin Trade Name Freq PRN Reason Stop Dose Admin Acetaminophen 650 mg 03/06/20 22:18 03/08/20 06:43 Tylenol - PO 650 mg Q4H PRN Administration PAIN LEVEL 7 - 10 Enoxaparin Sodium 40 mg 03/07/20 10:00 03/08/20 11:15 Lovenox - SQ 40 mg DAILY FANTASMA Administration Dextrose/Sodium Chloride 1,000 mls @ 83 mls/hr 03/06/20 22:30 03/08/20 03:09 D5-Ns - IV 83 mls/hr ASDIR FANTASMA Administration Ertapenem 1 gm/ Sodium 50 mls @ 100 mls/hr 03/08/20 11:00 Chloride IVPB DAILY [facility] Home Medications Medication Instructions Recorded NK [No Known Home Medication] 10/03/18 CT Abdomen and pelvis: acute left sided pyelonephritis is noted. 1cm hypodense focus is seen within the left lower pole renal cortex medially which may be an abscess. Microbiology 03/06/20 15:00 Blood - Peripheral Venous Blood Culture - Preliminary NO GROWTH OBTAINED AFTER 48 HOURS, INCUBATION TO CONTINUE FOR 3 DAYS. 03/06/20 14:45 Blood - Peripheral Venous Blood Culture - Preliminary NO GROWTH OBTAINED AFTER 48 HOURS, INCUBATION TO CONTINUE FOR 3 DAYS. 03/06/20 15:00 Urine - Urine Clean Catch Urine Culture - Final Escherichia Coli Esbl Wrecking Car Driver Assessment/Plan: This is a 25yof with no significant PMHx admitted for acute left sided ivki lonephritis with possible left lower pole renal cortex abscess. Presented with sepsis. 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 - New Patient This patient is new to me today: Yes Date on this admission: 03/08/20 - Critical Care Critical Care patient: No - Discharge Referral Referred to [facility] Med P.C.: No
[2020-03-08] MEDS: ERTAPENEM SODIUM 1 GM in SODIUM CHLORIDE 50 ML IVPB SCH (12:46)
--- NOTE | 2020-03-08 21:34 | PN ---
Progress Note, Physician History of Present Illness: AWAKE, ALERT IN BED C/O L FLANK PAIN NO C/O DYSURIA TEMPS DOWN URINE C/S ESBL - Current Medication List Current Medications: Active Medications Acetaminophen (Tylenol -) 650 mg PO Q4H PRN PRN Reason: PAIN LEVEL 7 - 10 Last Admin: 03/08/20 06:43 Dose: 650 mg Documented by: Enoxaparin Sodium (Lovenox -) 40 mg SQ DAILY [facility] Last Admin: 03/08/20 11:15 Dose: 40 mg Documented by: Dextrose/Sodium Chloride (D5-Ns -) 1,000 mls @ 83 mls/hr IV ASDIR [facility] Last Admin: 03/08/20 15:48 Dose: 83 mls/hr Documented by: Ertapenem 1 gm/ Sodium (Chloride) 50 mls @ 100 mls/hr IVPB DAILY [facility] Last Admin: 03/08/20 12:46 Dose: 100 mls/hr Documented by: - Objective Vital Signs: Vital Signs Temperature 98.4 F 03/08/20 18:00 Pulse Rate 77 03/08/20 18:00 Respiratory Rate 18 03/08/20 18:00 Blood Pressure 126/65 03/08/20 18:00 O2 Sat by Pulse Oximetry (%) 100 03/08/20 09:00 Constitutional: Yes: No Distress Cardiovascular: Yes: Regular Rate and Rhythm, S1, S2 Respiratory: Yes: CTA Bilaterally Genitourinary: Yes: CVA Tenderness - Left Labs: CBC, BMP 03/08/20 08:28 03/08/20 08:28 INR, PTT INR 1.19 (0.83-1.09) H 03/06/20 15:00 Assessment/Plan UTI/ PYELO + URINE C/S ESBL CONTINUE ERTAPENEM
[2020-03-09] MEDS: DEXTROSE 5%-NORMAL SALINE 1,000 ML IV SCH ×3 (03:39→22:40)
[2020-03-09 09:07] LABS: BASO % 0.6 % (0-2.0); EOS % 0.9 % (0-4.5); HEMATOCRIT 28.4 % (32.4-45.2); HEMOGLOBIN 9.5 GM/dL (10.7-15.3); LYMPH % 24.7 % (8-40); MCH 28.6 pg (25.7-33.7); MCHC 33.6 g/dl (32.0-36.0); MEAN CELL VOLUME 85.1 fl (80-96); MEAN PLT VOLUME 8.1 fl (7.5-11.1); MONO % 7.9 % (3.8-10.2); NEUT % 65.9 % (42.8-82.8); PLATELET COUNT 374 K/MM3 (134-434); RBC 3.34 M/mm3 (3.60-5.2); RDW 13.1 % (11.6-15.6); WHITE BLOOD COUNT 8.7 K/mm3 (4.0-10.0)
[2020-03-09 09:39] LABS: ALBUMIN 2.8 g/dl (3.4-5.0); BILIRUBIN,TOTAL 0.6 mg/dL (0.2-1); BLOOD UREA NITROGEN 3.4 mg/dL (7-18); CALCIUM 9.1 mg/dL (8.5-10.1); CREATININE 0.6 mg/dL (0.55-1.3); POTASSIUM 3.6 mmol/L (3.5-5.1); TOT PROT 6.8 g/dl (6.4-8.2)
[2020-03-09] MEDS: ERTAPENEM SODIUM 1 GM in SODIUM CHLORIDE 50 ML IVPB SCH (10:58)
[2020-03-09] MEDS: ENOXAPARIN NA (PORCINE) 40 MG/0.4 ML DISP.SYRIN SQ SCH (10:58)
--- NOTE | 2020-03-09 16:21 | PN ---
Teaching Attending Note Name of Resident: Blake Lai ATTENDING PHYSICIAN STATEMENT I saw and evaluated the patient. I reviewed the resident's note and discussed the case with the resident. I agree with the resident's findings and plan as documented. SUBJECTIVE: Patient is feeling better with no acute distress. OBJECTIVE: Vital Signs Temperature 98.8 F 03/09/20 15:00 Pulse Rate 76 03/09/20 15:00 Respiratory Rate 20 03/09/20 15:00 Blood Pressure 141/60 03/09/20 15:00 O2 Sat by Pulse Oximetry (%) 97 03/08/20 21:00 PE: per resident's note CBCD WBC 8.7 K/mm3 (4.0-10.0) 03/09/20 08:50 RBC 3.34 M/mm3 (3.60-5.2) L 03/09/20 08:50 Hgb 9.5 GM/dL (10.7-15.3) L 03/09/20 08:50 Hct 28.4 % (32.4-45.2) L 03/09/20 08:50 MCV 85.1 fl (80-96) 03/09/20 08:50 MCHC 33.6 g/dl (32.0-36.0) 03/09/20 08:50 RDW 13.1 % (11.6-15.6) 03/09/20 08:50 Plt Count 374 K/MM3 (134-434) D 03/09/20 08:50 MPV 8.1 fl (7.5-11.1) 03/09/20 08:50 CMP Sodium 139 mmol/L (136-145) 03/09/20 08:38 Potassium 3.6 mmol/L (3.5-5.1) 03/09/20 08:38 Chloride 106 mmol/L (98-107) 03/09/20 08:38 Carbon Dioxide 24 mmol/L (21-32) 03/09/20 08:38 Anion Gap 9 MMOL/L (8-16) 03/09/20 08:38 BUN 3.4 mg/dL (7-18) L 03/09/20 08:38 Creatinine 0.6 mg/dL (0.55-1.3) 03/09/20 08:38 Random Glucose 112 mg/dL (74-106) H 03/09/20 08:38 Calcium 9.1 mg/dL (8.5-10.1) 03/09/20 08:38 Total Bilirubin 0.6 mg/dL (0.2-1) 03/09/20 08:38 AST 10 U/L (15-37) L 03/09/20 08:38 ALT 14 U/L (13-61) 03/09/20 08:38 Alkaline Phosphatase 125 U/L (45-117) H 03/09/20 08:38 Total Protein 6.8 g/dl (6.4-8.2) 03/09/20 08:38 Albumin 2.8 g/dl (3.4-5.0) L 03/09/20 08:38 CARDIAC ENZYMES Troponin I < 0.02 ng/ml (0.00-0.05) 03/06/20 15:00 Current Medications Generic Name Dose Route Start Last Admin Trade Name Freq PRN Reason Stop Dose Admin Acetaminophen 650 mg 03/06/20 22:18 03/08/20 06:43 Tylenol - PO 650 mg Q4H PRN Administration PAIN LEVEL 7 - 10 Enoxaparin Sodium 40 mg 03/07/20 10:00 03/09/20 10:58 Lovenox - SQ 40 mg DAILY FANTASMA Administration Dextrose/Sodium Chloride 1,000 mls @ 83 mls/hr 03/06/20 22:30 03/09/20 15:15 D5-Ns - IV 83 mls/hr ASDIR FANTASMA Administration Ertapenem 1 gm/ Sodium 50 mls @ 100 mls/hr 03/08/20 11:00 03/09/20 10:58 Chloride IVPB 100 mls/hr DAILY FANTASMA Administration Home Medications Medication Instructions Recorded NK [No Known Home Medication] 10/03/18 Microbiology 03/06/20 15:00 Blood - Peripheral Venous Blood Culture - Preliminary NO GROWTH OBTAINED AFTER 72 HOURS, INCUBATION TO CONTINUE FOR 2 DAYS. 03/06/20 14:45 Blood - Peripheral Venous Blood Culture - Preliminary NO GROWTH OBTAINED AFTER 72 HOURS, INCUBATION TO CONTINUE FOR 2 DAYS. 03/06/20 15:00 Urine - Urine Clean Catch Urine Culture - Final Escherichia Coli Esbl Appeals Officer ASSESSMENT AND PLAN: This is a 25yof with no significant PMHx admitted for acute left sided pyelonephritis with possible left lower pole renal cortex abscess. Presented with sepsis. # Acute sepsis : blood cx negative, Urine cx is ESBL E.coli, GC cx pending #Acute pylonephritis with possible abscess on Zosyn IV switched to Ertapenem by ID , will continue to monitor. # Acute UTI growing ESBL , switched to Ertapenem from Zosyn , continue DVT prophylaxis: Lovenox 40 mg will check with ID regarding discharge antibiotic in am
--- NOTE | 2020-03-09 17:45 | PN ---
Physical Exam: SUBJECTIVE: Patient seen and examined NAEON Pt feels well. Denies suprapubic pain, burning w/ urination. Tolerating diet. Had h/o chladmydia, which treated. OBJECTIVE: Vital Signs Period Temp Pulse Resp BP Sys/Caceres Pulse Ox Last 24 Hr 98 F-99.3 F 76-87 16-20 126-141/60-79 97 GENERAL: NAD. Comfortable-appearing HEAD: NC/AT EYES: sclera anicteric, conjunctiva w/o pallor. ENT: moist mucous membranes. NECK: Trachea midline, full range of motion, supple. LUNGS: Breath sounds equal, clear to auscultation bilaterally, no wheezes, no crackles, no accessory muscle use. HEART: Regular rate and rhythm, S1, S2 without murmur, rub or gallop. ABDOMEN: Soft, nontender, nondistended, no guarding, no rebound. Neg suprapubic tenderness. Neg CVA tenderness EXTREMITIES: 2+ pulses, warm, well-perfused, no edema. NEUROLOGICAL: Normal speech Laboratory Results - last 24 hr 03/09/20 03/09/20 08:38 08:50 WBC 8.7 RBC 3.34 L Hgb 9.5 L Hct 28.4 L MCV 85.1 MCH 28.6 MCHC 33.6 RDW 13.1 Plt Count 374 D MPV 8.1 Absolute Neuts (auto) 5.7 Neutrophils % 65.9 Lymphocytes % 24.7 Monocytes % 7.9 Eosinophils % 0.9 Basophils % 0.6 Nucleated RBC % 0 Sodium 139 Potassium 3.6 Chloride 106 Carbon Dioxide 24 Anion Gap 9 BUN 3.4 L Creatinine 0.6 Est GFR (CKD-EPI)AfAm 147.86 Est GFR (CKD-EPI)NonAf 127.58 Random Glucose 112 H Calcium 9.1 Total Bilirubin 0.6 AST 10 L ALT 14 Alkaline Phosphatase 125 H Total Protein 6.8 Albumin 2.8 L Active Medications Generic Name Dose Route Start Last Admin Trade Name Freq PRN Reason Stop Dose Admin Acetaminophen 650 mg 03/06/20 22:18 03/08/20 06:43 Tylenol - PO 650 mg Q4H PRN Administration PAIN LEVEL 7 - 10 Enoxaparin Sodium 40 mg 03/07/20 10:00 03/09/20 10:58 Lovenox - SQ 40 mg DAILY FANTASMA Administration Dextrose/Sodium Chloride 1,000 mls @ 83 mls/hr 03/06/20 22:30 03/09/20 15:15 D5-Ns - IV 83 mls/hr ASDIR FANTASMA Administration Ertapenem 1 gm/ Sodium 50 mls @ 100 mls/hr 03/08/20 11:00 03/09/20 10:58 Chloride IVPB 100 mls/hr DAILY FANTASMA Administration ASSESSMENT/PLAN: 25F w/ no significant PMH presented with 4 days of LLQ abdominal pain, fever/chills, diarrhea, N/V, headache and lightheadedness. Initial WBC 17.5 and imaging notable for CT abd/pelvis w/ acute left sided pyelonephritis with a possible abscess. She was admitted for treatment and management of sepsis 2/2 acute pyelonephritis. #sepsis 2/2 to acute pylonephritis with possible abscess > WBC 17.5, 12.4, 10.3, 8.7 > UA: trace LE, WBC 36, bact 218, epith 20 > UCX: ESBL Ecoli(R levofloxacin, tobramycin, TMP-SMX) > CT: 1 cm hypodense focus is seen within the left lower pole renal cortex medially which may be on the basis of somewhat more prominent versus and incipient abscess > C trachomatis --pending > N gonorrhoeae --pending - ID consult([place]) consult: --changed zosyn ertapenem - abx regimen: --ED: ceftriaxone x1 --sp zosyn x2d --current: ertapenem(day 4 of total abx) FEN: IVF: D5W-NS @ 83mls/Hr Diet: Regular DVT prophylaxis: Lovenox 40 mg Visit type - Emergency Visit Emergency Visit: No - New Patient This patient is new to me today: Yes Date on this admission: 03/09/20 - Critical Care Critical Care patient: No ATTENDING PHYSICIAN STATEMENT I saw and evaluated the patient. I reviewed the resident's note and discussed the case with the resident. I agree with the resident's findings and plan as documented. SUBJECTIVE: OBJECTIVE: ASSESSMENT AND PLAN:
[2020-03-10] MEDS: DEXTROSE 5%-NORMAL SALINE 1,000 ML IV SCH ×2 (03:39→15:47)
--- NOTE | 2020-03-10 09:16 | PN ---
Teaching Attending Note Name of Resident: Pallavi Toscano ATTENDING PHYSICIAN STATEMENT I saw and evaluated the patient. I reviewed the resident's note and discussed the case with the resident. I agree with the resident's findings and plan as documented. SUBJECTIVE: The patient is feeling better. no fever or chills. OBJECTIVE: Vital Signs Temperature 99.3 F 03/10/20 06:00 Pulse Rate 78 03/10/20 06:00 Respiratory Rate 18 03/10/20 06:00 Blood Pressure 138/72 03/10/20 06:00 O2 Sat by Pulse Oximetry (%) 99 03/09/20 21:00 PE: per resident's note CBCD WBC 8.7 K/mm3 (4.0-10.0) 03/09/20 08:50 RBC 3.34 M/mm3 (3.60-5.2) L 03/09/20 08:50 Hgb 9.5 GM/dL (10.7-15.3) L 03/09/20 08:50 Hct 28.4 % (32.4-45.2) L 03/09/20 08:50 MCV 85.1 fl (80-96) 03/09/20 08:50 MCHC 33.6 g/dl (32.0-36.0) 03/09/20 08:50 RDW 13.1 % (11.6-15.6) 03/09/20 08:50 Plt Count 374 K/MM3 (134-434) D 03/09/20 08:50 MPV 8.1 fl (7.5-11.1) 03/09/20 08:50 CMP Sodium 139 mmol/L (136-145) 03/09/20 08:38 Potassium 3.6 mmol/L (3.5-5.1) 03/09/20 08:38 Chloride 106 mmol/L (98-107) 03/09/20 08:38 Carbon Dioxide 24 mmol/L (21-32) 03/09/20 08:38 Anion Gap 9 MMOL/L (8-16) 03/09/20 08:38 BUN 3.4 mg/dL (7-18) L 03/09/20 08:38 Creatinine 0.6 mg/dL (0.55-1.3) 03/09/20 08:38 Random Glucose 112 mg/dL (74-106) H 03/09/20 08:38 Calcium 9.1 mg/dL (8.5-10.1) 03/09/20 08:38 Total Bilirubin 0.6 mg/dL (0.2-1) 03/09/20 08:38 AST 10 U/L (15-37) L 03/09/20 08:38 ALT 14 U/L (13-61) 03/09/20 08:38 Alkaline Phosphatase 125 U/L (45-117) H 03/09/20 08:38 Total Protein 6.8 g/dl (6.4-8.2) 03/09/20 08:38 Albumin 2.8 g/dl (3.4-5.0) L 03/09/20 08:38 CARDIAC ENZYMES Troponin I < 0.02 ng/ml (0.00-0.05) 03/06/20 15:00 Current Medications Generic Name Dose Route Start Last Admin Trade Name Freq PRN Reason Stop Dose Admin Acetaminophen 650 mg 03/06/20 22:18 03/08/20 06:43 Tylenol - PO 650 mg Q4H PRN Administration PAIN LEVEL 7 - 10 Enoxaparin Sodium 40 mg 03/07/20 10:00 03/09/20 10:58 Lovenox - SQ 40 mg DAILY FANTASMA Administration Dextrose/Sodium Chloride 1,000 mls @ 83 mls/hr 03/06/20 22:30 03/10/20 03:39 D5-Ns - IV 83 mls/hr ASDIR FANTASMA Administration Ertapenem 1 gm/ Sodium 50 mls @ 100 mls/hr 03/08/20 11:00 03/09/20 10:58 Chloride IVPB 100 mls/hr DAILY FANTASMA Administration Home Medications Medication Instructions Recorded NK [No Known Home Medication] 10/03/18 Microbiology 03/06/20 15:00 Blood - Peripheral Venous Blood Culture - Preliminary NO GROWTH OBTAINED AFTER 72 HOURS, INCUBATION TO CONTINUE FOR 2 DAYS. 03/06/20 14:45 Blood - Peripheral Venous Blood Culture - Preliminary NO GROWTH OBTAINED AFTER 72 HOURS, INCUBATION TO CONTINUE FOR 2 DAYS. 03/06/20 15:00 Urine - Urine Clean Catch Urine Culture - Final Escherichia Coli Esbl User Experience Developer CT abdomen and pelvis: 1cm hypodense focus within the left pole renal cortex medially which medially which may be on the basis of an abscess. ASSESSMENT AND PLAN: This is a 25yof with no significant PMHx admitted for acute left sided pyelonephritis with possible left lower pole renal cortex abscess. Presented with sepsis. # s/p sepsis : blood cx negative, Urine cx is ESBL E.coli, GC cx pending #Acute pylonephritis with possible abscess on Zosyn IV switched to Ertapenem by ID , will continue to monitor. urology consulted dr Palencia since CT repoting an abscess. Discussed with ID , PIcc line to dc patient home with . patient had a low grade temp last night , will monitor for now # Acute UTI growing ESBL , switched to Ertapenem from Zosyn , continue DVT prophylaxis: Lovenox 40 mg
--- NOTE | 2020-03-10 09:19 | PN ---
Physical Exam: SUBJECTIVE: Patient seen and examined OBJECTIVE: Vital Signs Period Temp Pulse Resp BP Sys/Caceres Pulse Ox Last 24 Hr 98 F-100.3 F 76-88 18-20 118-141/60-82 99 GENERAL: The patient is awake, alert, and fully oriented, in no acute distress. HEAD: Normal with no signs of trauma. EYES: PERRL, extraocular movements intact, sclera anicteric, conjunctiva clear. No ptosis. ENT: Ears normal, nares patent, oropharynx clear without exudates, moist mucous membranes. NECK: Trachea midline, full range of motion, supple. LUNGS: Breath sounds equal, clear to auscultation bilaterally, no wheezes, no crackles, no accessory muscle use. HEART: Regular rate and rhythm, S1, S2 without murmur, rub or gallop. ABDOMEN: Soft, nontender, nondistended, normoactive bowel sounds, no guarding, no rebound, no hepatosplenomegaly, no masses. EXTREMITIES: 2+ pulses, warm, well-perfused, no edema. NEUROLOGICAL: Cranial nerves II through XII grossly intact. Normal speech, gait not observed. PSYCH: Normal mood, normal affect. SKIN: Warm, dry, normal turgor, no rashes or lesions noted Laboratory Results - last 24 hr 03/09/20 03/09/20 08:38 08:50 WBC 8.7 RBC 3.34 L Hgb 9.5 L Hct 28.4 L MCV 85.1 MCH 28.6 MCHC 33.6 RDW 13.1 Plt Count 374 D MPV 8.1 Absolute Neuts (auto) 5.7 Neutrophils % 65.9 Lymphocytes % 24.7 Monocytes % 7.9 Eosinophils % 0.9 Basophils % 0.6 Nucleated RBC % 0 Sodium 139 Potassium 3.6 Chloride 106 Carbon Dioxide 24 Anion Gap 9 BUN 3.4 L Creatinine 0.6 Est GFR (CKD-EPI)AfAm 147.86 Est GFR (CKD-EPI)NonAf 127.58 Random Glucose 112 H Calcium 9.1 Total Bilirubin 0.6 AST 10 L ALT 14 Alkaline Phosphatase 125 H Total Protein 6.8 Albumin 2.8 L Active Medications Generic Name Dose Route Start Last Admin Trade Name Freq PRN Reason Stop Dose Admin Acetaminophen 650 mg 03/06/20 22:18 03/08/20 06:43 Tylenol - PO 650 mg Q4H PRN Administration PAIN LEVEL 7 - 10 Enoxaparin Sodium 40 mg 03/07/20 10:00 03/09/20 10:58 Lovenox - SQ 40 mg DAILY FANTASMA Administration Dextrose/Sodium Chloride 1,000 mls @ 83 mls/hr 03/06/20 22:30 03/10/20 03:39 D5-Ns - IV 83 mls/hr ASDIR FANTASMA Administration Ertapenem 1 gm/ Sodium 50 mls @ 100 mls/hr 03/08/20 11:00 03/09/20 10:58 Chloride IVPB 100 mls/hr DAILY FANTASMA Administration ASSESSMENT/PLAN: ATTENDING PHYSICIAN STATEMENT I saw and evaluated the patient. I reviewed the resident's note and discussed the case with the resident. I agree with the resident's findings and plan as documented. SUBJECTIVE: OBJECTIVE: ASSESSMENT AND PLAN:
[2020-03-10] MEDS ORDERED: PT OWN MED DRAWER 7, Y5N ONE (09:20)
[2020-03-10] MEDS: ENOXAPARIN NA (PORCINE) 40 MG/0.4 ML DISP.SYRIN SQ SCH (09:50)
[2020-03-10] MEDS: ERTAPENEM SODIUM 1 GM in SODIUM CHLORIDE 50 ML IVPB SCH (09:50)
--- NOTE | 2020-03-10 10:12 | CONS ---
DATE OF CONSULTATION: DATE OF DICTATION: 03/09/2020 The patient is a 25-year-old female who presented with left flank and left lower quadrant abdominal pain for 4 days. She describes the pain as crampy in nature, nonradiating, constant. It was associated with fever, loose bowel movements, headaches, lightheadedness and anorexia. She presented to the emergency room where she was evaluated and she was discharged home. She now returns for further evaluation. The patient was noted on admission to have fever; T-max to 102.7, as well as elevated white blood cell count of 17.5. Urinalysis showed 36 white cells. Cultures were obtained. She was empirically started on antibiotic therapy. Urine culture was positive for gram-negative rods. PAST MEDICAL HISTORY: Negative. ALLERGIES: No known allergies. LABORATORY DATA: White count 10.3, hematocrit 26.7, platelets 279, creatinine 0.6. Urinalysis: 36 white cells. COVID-19 negative. Blood cultures pending. Urine gram-negative rods. CAT scan of the abdomen and pelvis shows acute left pyelonephritis. PHYSICAL EXAMINATION: General: She is awake and alert. She is in moderate distress secondary to flank pain. Vital Signs: Temperature 98.4, blood pressure 126/65, pulse 77 and regular, respirations 18 per minute. HEENT: Sclerae anicteric. HEART: Sounds S1, S2. LUNGS: Clear. ABDOMEN: Soft. Left CVA tenderness to palpation. EXTREMITIES: Negative for edema. IMPRESSION: 1. Acute left pyelonephritis. 2. Urinary tract infection. PLAN: Await culture results. Continue ceftriaxone. Further recommendations pending culture results. We will follow. Thank you for the kind referral. MARK EDMONDSON M.D. MELYSSA/[id number]
[2020-03-10 12:14] LABS: HEMATOCRIT 30.8 % (32.4-45.2); HEMOGLOBIN 10.2 GM/dL (10.7-15.3); MCH 28.2 pg (25.7-33.7); MCHC 33.1 g/dl (32.0-36.0); MEAN CELL VOLUME 85.4 fl (80-96); MEAN PLT VOLUME 8.2 fl (7.5-11.1); PLATELET COUNT 427 K/MM3 (134-434); RBC 3.61 M/mm3 (3.60-5.2); RDW 12.9 % (11.6-15.6); WHITE BLOOD COUNT 8.8 K/mm3 (4.0-10.0)
[2020-03-10 12:42] LABS: CALCIUM 8.9 mg/dL (8.5-10.1); CREATININE 0.6 mg/dL (0.55-1.3); MAGNESIUM 2.3 mg/dL (1.8-2.4); PHOSPHOROUS 3.2 mg/dL (2.5-4.9); POTASSIUM 4.1 mmol/L (3.5-5.1)
--- NOTE | 2020-03-10 17:52 | PN ---
Physical Exam: SUBJECTIVE: Patient seen and examined OBJECTIVE: Vital Signs Period Temp Pulse Resp BP Sys/Caceres Pulse Ox Last 24 Hr 98.3 F-100.3 F 76-88 18-20 118-138/63-82 99-99 GENERAL: The patient is awake, alert, and fully oriented, in no acute distress. HEAD: Normal with no signs of trauma. EYES: PERRL, extraocular movements intact, sclera anicteric, conjunctiva clear. No ptosis. ENT: Ears normal, nares patent, oropharynx clear without exudates, moist mucous membranes. NECK: Trachea midline, full range of motion, supple. LUNGS: Breath sounds equal, clear to auscultation bilaterally, no wheezes, no crackles, no accessory muscle use. HEART: Regular rate and rhythm, S1, S2 without murmur, rub or gallop. ABDOMEN: Soft, nontender, nondistended, normoactive bowel sounds, no guarding, no rebound, no hepatosplenomegaly, no masses. EXTREMITIES: 2+ pulses, warm, well-perfused, no edema. NEUROLOGICAL: Cranial nerves II through XII grossly intact. Normal speech, gait not observed. PSYCH: Normal mood, normal affect. SKIN: Warm, dry, normal turgor, no rashes or lesions noted Laboratory Results - last 24 hr 03/10/20 03/10/20 10:55 10:55 WBC 8.8 RBC 3.61 Hgb 10.2 L Hct 30.8 L MCV 85.4 MCH 28.2 MCHC 33.1 RDW 12.9 Plt Count 427 MPV 8.2 Sodium 138 Potassium 4.1 Chloride 104 Carbon Dioxide 25 Anion Gap 9 BUN 4.0 L Creatinine 0.6 Est GFR (CKD-EPI)AfAm 147.86 Est GFR (CKD-EPI)NonAf 127.58 Random Glucose 122 H Calcium 8.9 Phosphorus 3.2 Magnesium 2.3 Active Medications Generic Name Dose Route Start Last Admin Trade Name Freq PRN Reason Stop Dose Admin Acetaminophen 650 mg 03/06/20 22:18 03/08/20 06:43 Tylenol - PO 650 mg Q4H PRN Administration PAIN LEVEL 7 - 10 Enoxaparin Sodium 40 mg 03/07/20 10:00 03/10/20 09:50 Lovenox - SQ 40 mg DAILY FANTASMA Administration Dextrose/Sodium Chloride 1,000 mls @ 83 mls/hr 03/06/20 22:30 03/10/20 15:47 D5-Ns - IV 83 mls/hr ASDIR FANTASMA Administration Ertapenem 1 gm/ Sodium 50 mls @ 100 mls/hr 03/08/20 11:00 03/10/20 09:50 Chloride IVPB 100 mls/hr DAILY FANTASMA Administration Imaging: CT: 1 cm hypodense focus is seen within the left lower pole renal cortex medially which may be on the basis of somewhat more prominent versus and incipient abscess. ASSESSMENT/PLAN: 25 yo Female with no significant PMH presented with 4 days of LLQ abdominal pain, fever/chills, diarrhea, N/V, headache and lightheadedness. Her WBC count was elevated, 17.5. CT abd/pelvis was significant for acute left sided pyelonephritis with a possible abscess. She was admitted for treatment and management of acute pyelonephritis Acute pylonephritis with possible abscess - Elevated WBC of 17.5 >>> 12.4 >>> 10.3>>> 8.7>>> 8.8 - I dose Ceftriaxone Sodium 1 gm in ED - Zosyn D/C after 2 days - Cultures ESBL + and switched over to ertapenem currently Day 2/ - contact precautions - Pending STI panel - Covid negative - ID Dr. Dang consulted, patient having PICC line placed tomorrow in order to receive IV antibiotics for next 10-14 days DVT prophylaxis: Lovenox 40 mg FEN: IVF: D5W-NS @ 83mls/Hr Diet: Regular Disposition: Continue to monitor on Med-Surg D/C home on 03/11 after PICC line placed ATTENDING PHYSICIAN STATEMENT I saw and evaluated the patient. I reviewed the resident's note and discussed the case with the resident. I agree with the resident's findings and plan as documented. SUBJECTIVE: OBJECTIVE: ASSESSMENT AND PLAN:
[2020-03-11] MEDS: DEXTROSE 5%-NORMAL SALINE 1,000 ML IV SCH (02:46)
[2020-03-11] MEDS ORDERED: PT OWN MED DRAWER 7, Y5N ONE (09:02)
[2020-03-11] MEDS: ENOXAPARIN NA (PORCINE) 40 MG/0.4 ML DISP.SYRIN SQ SCH (09:20)
[2020-03-11] MEDS: ERTAPENEM SODIUM 1 GM in SODIUM CHLORIDE 50 ML IVPB SCH (09:29)
[2020-03-11 14:28] VITALS: BP 114/64; PULSE 79; TEMP 99.1
--- NOTE | 2020-03-11 16:31 | PN ---
Teaching Attending Note Name of Resident: Blake Lai ATTENDING PHYSICIAN STATEMENT I saw and evaluated the patient. I reviewed the resident's note and discussed the case with the resident. I agree with the resident's findings and plan as documented. SUBJECTIVE: no fever or chills, no NEWELL, no pain in abd or flank OBJECTIVE: NAd Cv : RRR, 2/6 SM at LLSB, and apex and base. no radiation to carotids Lungs: CTAB Abd: soft, NT, ND , NL BS ext : No edema ASSESSMENT AND PLAN: 25 y/o lady who presneted with fever and was found to have sepsis due to pyelonephritis 1- s/p sepsis, due to pyelonephritis with ESBL : CT reviewed. possible abscess VS inflammatory changes in L kidney. Dr. Santos was made aware of this finding, by Dr. Lai. Recs to have her follow up in urology [facility]. Apt was made. - cont Abx , Ertapenem , x 10 more days. ( total of 14 days ) probably will need further imaging by uro - f/u with ID 2- heart murmur. indicental. no bacteremia. echo as out tp . she was made aware. dc home with PICC. VNS services for home Abx. khurram lives a lone and will be able to administer her Abx. d/w her
--- NOTE | 2020-03-11 20:01 | PN ---
Progress Note, Physician - Objective Vital Signs: Vital Signs Temperature 99.1 F 03/11/20 14:25 Pulse Rate 79 03/11/20 14:25 Respiratory Rate 18 03/11/20 14:25 Blood Pressure 114/64 03/11/20 14:25 O2 Sat by Pulse Oximetry (%) 99 03/11/20 08:35 Labs: CBC, BMP 03/10/20 10:55 03/10/20 10:55 INR, PTT INR 1.19 (0.83-1.09) H 03/06/20 15:00
--- NOTE | 2020-03-11 21:49 | DS ---
Physical Exam: SUBJECTIVE: Patient seen and examined bedside. In no acute distress. No events overnight. OBJECTIVE: Vital Signs Vital Signs - 8 hr 03/11/20 14:25 Temperature 99.1 F Pulse Rate 79 Respiratory 18 Rate Blood Pressure 114/64 PHYSICAL EXAM GENERAL: NAD. Comfortable-appearing HEAD: NC/AT EYES: sclera anicteric, conjunctiva w/o pallor. ENT: moist mucous membranes. NECK: Trachea midline, full range of motion, supple. LUNGS: Breath sounds equal, clear to auscultation bilaterally, no wheezes, no crackles, no accessory muscle use. HEART: Regular rate and rhythm, S1, S2 without murmur, rub or gallop. ABDOMEN: Soft, nontender, nondistended, no guarding, no rebound. Neg suprapubic tenderness. Neg CVA tenderness EXTREMITIES: 2+ pulses, warm, well-perfused, no edema. NEUROLOGICAL: Normal speech Laboratory Tests 03/06/20 03/06/20 03/06/20 15:00 15:00 15:00 WBC 17.5 H RBC 4.21 Hgb 11.8 Hct 35.8 MCV 85.0 MCH 28.0 MCHC 33.0 RDW 13.0 Plt Count 306 MPV 9.2 Absolute Neuts (auto) 13.4 H Neutrophils % 76.5 Lymphocytes % 12.1 Monocytes % 10.8 H Eosinophils % 0.1 Basophils % 0.5 Nucleated RBC % 0 PT with INR 14.10 H INR 1.19 H PTT (Actin FS) 31.2 Sodium Potassium Chloride Carbon Dioxide Anion Gap BUN Creatinine Est GFR (CKD-EPI)AfAm Est GFR (CKD-EPI)NonAf Random Glucose Hemoglobin A1c % Lactic Acid Calcium Phosphorus Magnesium Total Bilirubin AST ALT Alkaline Phosphatase Troponin I Total Protein Albumin Urine Color Dk yellow Urine Appearance Clear Urine pH 6.0 Ur Specific [place] 1.021 Urine Protein 2+ H Urine Glucose (UA) Trace Urine Ketones Trace H Urine Blood 1+ H Urine Nitrite Negative Urine Bilirubin 1+ H Urine Urobilinogen 2.0 H Ur Leukocyte Esterase Trace Urine WBC (Auto) 36 Urine RBC (Auto) 42 Urine Casts (Auto) 3 U Epithel Cells (Auto) 20 Urine Bacteria (Auto) 218 Urine HCG, Qual Negative COVID-19 (RUIZ) 03/06/20 03/06/20 03/06/20 15:00 15:00 20:13 WBC RBC Hgb Hct MCV MCH MCHC RDW Plt Count MPV Absolute Neuts (auto) Neutrophils % Lymphocytes % Monocytes % Eosinophils % Basophils % Nucleated RBC % PT with INR INR PTT (Actin FS) Sodium 134 L Potassium 3.6 Chloride 101 Carbon Dioxide 25 Anion Gap 8 BUN 3.8 L Creatinine 0.8 Est GFR (CKD-EPI)AfAm 119.60 Est GFR (CKD-EPI)NonAf 103.19 Random Glucose 109 H Hemoglobin A1c % Lactic Acid 1.6 Calcium 9.2 Phosphorus Magnesium Total Bilirubin 1.1 H AST 13 L ALT 14 Alkaline Phosphatase 119 H Troponin I < 0.02 Total Protein 7.2 Albumin 3.2 L Urine Color Urine Appearance Urine pH Ur Specific [place] Urine Protein Urine Glucose (UA) Urine Ketones Urine Blood Urine Nitrite Urine Bilirubin Urine Urobilinogen Ur Leukocyte Esterase Urine WBC (Auto) Urine RBC (Auto) Urine Casts (Auto) U Epithel Cells (Auto) Urine Bacteria (Auto) Urine HCG, Qual Negative COVID-19 (RUIZ) 03/06/20 03/07/20 03/07/20 20:13 06:30 06:30 WBC 12.4 H RBC 3.60 Hgb 9.9 L Hct 30.5 L MCV 84.7 MCH 27.6 MCHC 32.6 RDW 13.3 Plt Count 270 MPV 8.7 Absolute Neuts (auto) 8.0 Neutrophils % 64.4 Lymphocytes % 24.1 D Monocytes % 10.3 H Eosinophils % 0.9 D Basophils % 0.3 Nucleated RBC % 0 PT with INR INR PTT (Actin FS) Sodium 138 Potassium 3.7 Chloride 106 Carbon Dioxide 21 Anion Gap 11 BUN 4.2 L Creatinine 0.7 Est GFR (CKD-EPI)AfAm 140.55 Est GFR (CKD-EPI)NonAf 121.27 Random Glucose 108 H Hemoglobin A1c % Lactic Acid Calcium 8.3 L Phosphorus 3.4 Magnesium 2.2 Total Bilirubin 1.0 AST 11 L ALT 12 L Alkaline Phosphatase 99 Troponin I Total Protein 6.2 L Albumin 2.6 L Urine Color Urine Appearance Urine pH Ur Specific [place] Urine Protein Urine Glucose (UA) Urine Ketones Urine Blood Urine Nitrite Urine Bilirubin Urine Urobilinogen Ur Leukocyte Esterase Urine WBC (Auto) Urine RBC (Auto) Urine Casts (Auto) U Epithel Cells (Auto) Urine Bacteria (Auto) Urine HCG, Qual COVID-19 (RUIZ) Not detected 03/07/20 03/08/20 03/08/20 06:30 08:28 08:28 WBC 10.3 H RBC 3.15 L Hgb 8.9 L Hct 26.7 L MCV 84.7 MCH 28.2 MCHC 33.4 RDW 13.3 Plt Count 279 MPV 8.4 Absolute Neuts (auto) 6.9 Neutrophils % 67.3 Lymphocytes % 22.0 Monocytes % 9.1 Eosinophils % 1.2 Basophils % 0.4 Nucleated RBC % 0 PT with INR INR PTT (Actin FS) Sodium 137 Potassium 3.8 Chloride 108 H Carbon Dioxide 24 Anion Gap 6 L BUN 3.5 L Creatinine 0.6 Est GFR (CKD-EPI)AfAm 147.86 Est GFR (CKD-EPI)NonAf 127.58 Random Glucose 120 H Hemoglobin A1c % 5.2 Lactic Acid Calcium 8.8 Phosphorus 3.5 Magnesium 2.3 Total Bilirubin AST ALT Alkaline Phosphatase Troponin I Total Protein Albumin Urine Color Urine Appearance Urine pH Ur Specific [place] Urine Protein Urine Glucose (UA) Urine Ketones Urine Blood Urine Nitrite Urine Bilirubin Urine Urobilinogen Ur Leukocyte Esterase Urine WBC (Auto) Urine RBC (Auto) Urine Casts (Auto) U Epithel Cells (Auto) Urine Bacteria (Auto) Urine HCG, Qual COVID-19 (RUIZ) 03/09/20 03/09/20 03/10/20 08:38 08:50 10:55 WBC 8.7 8.8 RBC 3.34 L 3.61 Hgb 9.5 L 10.2 L Hct 28.4 L 30.8 L MCV 85.1 85.4 MCH 28.6 28.2 MCHC 33.6 33.1 RDW 13.1 12.9 Plt Count 374 D 427 MPV 8.1 8.2 Absolute Neuts (auto) 5.7 Neutrophils % 65.9 Lymphocytes % 24.7 Monocytes % 7.9 Eosinophils % 0.9 Basophils % 0.6 Nucleated RBC % 0 PT with INR INR PTT (Actin FS) Sodium 139 Potassium 3.6 Chloride 106 Carbon Dioxide 24 Anion Gap 9 BUN 3.4 L Creatinine 0.6 Est GFR (CKD-EPI)AfAm 147.86 Est GFR (CKD-EPI)NonAf 127.58 Random Glucose 112 H Hemoglobin A1c % Lactic Acid Calcium 9.1 Phosphorus Magnesium Total Bilirubin 0.6 AST 10 L ALT 14 Alkaline Phosphatase 125 H Troponin I Total Protein 6.8 Albumin 2.8 L Urine Color Urine Appearance Urine pH Ur Specific [place] Urine Protein Urine Glucose (UA) Urine Ketones Urine Blood Urine Nitrite Urine Bilirubin Urine Urobilinogen Ur Leukocyte Esterase Urine WBC (Auto) Urine RBC (Auto) Urine Casts (Auto) U Epithel Cells (Auto) Urine Bacteria (Auto) Urine HCG, Qual COVID-19 (RUIZ) IMAGING CT: 1 cm hypodense focus is seen within the left lower pole renal cortex medially which may be on the basis of somewhat more prominent versus and incipient abscess HOSPITAL COURSE: PMH presented with 4 days of LLQ abdominal pain, fever/chills, diarrhea, N/V, headache and lightheadedness. Initial WBC 17.[address] and [address] notable for CT abd/pelvis with acute left sided pyelonephritis with a possible abscess. She was admitted for treatment and management of sepsis due to acute pyelonephritis. Cultures came back positive for ESBL. Patient was discharged with PICC line in place in order to complete 10 more days of IV etrapenam. On exam, a small murmur was heard at LLSB, patient was told to follow up with PCP about an outpatient ECHO as well as followup within 2 weeks of being discharged. Date of Admission:03/06/20 Date of Discharge: 03/11/20 Minutes to complete discharge: 30 Discharge Summary Problems reviewed: Yes Reason For Visit: PYELONEPHRITIS Condition: Improved - Instructions Diet, Activity, Other Instructions: Visit: You presented to the ED with 4 days of abdominal pain that was worsen on your left side along with fever, diarrhea, headache, lightheadedness, and loss of appetite. A CT was done that showed an acute left sided kidney infection with a small area of possible abscess. You were admitted for treatment of this kidney infection and started on IV antibiotics. Because of the type of bacteria you tested positive for, and the possibility of an abscess, we are discharging you home with a PICC line which is an IV that you can go home with in order to keep receiving antibiotics at home. A visiting nurse will be in contact with you about home medications and instructions. Medications: Intravenous Ertapenem 1g IV x 10 days Follow ups: - primary care doctor: please discuss your recent hospitalization. While being examined a small murmur was note. Please speak to your primary care physician about any necessary outpatient Echocardiogram. --if you do not have a primary care physician, you may choose to come to our [facility] - While in the hospital you were tested for STI but the results have not come back yet. Please contact medical records for your results. - Urologist(Yuval): to discuss the possible kidney "abscess" and any follow- up imaging necessary. An appointment was scheduled for 03/13/2020, at 1pm Precautions: If for any reason you start to experience worsening symptoms such as: fever, chills, abdominal pain, pain with urination, blood in urine - please go to the ED Referrals: Son Barakat MD [Staff Physician] - 03/13/20 1:00 pm (03/13/2020, at 1PM) Lynnette Guzman [Primary Care Provider] - 2 Weeks Disposition: HOME - Home Medications Comprehensive Discharge Medication List: Ambulatory Orders Ertapenem Sodium [Ertapenem] 1 gm IJ DAILY #10 vial 03/11/20 This patient is new to me today: Yes Date on this admission: 03/06/20 Emergency Visit: Yes ED Registration Date: 03/06/20 Care time: The patient presented to the Emergency Department on the above date and was hospitalized for further evaluation of their emergent condition. Critical Care patient: No - Discharge Referral Referred to [facility] No ATTENDING PHYSICIAN STATEMENT I saw and evaluated the patient. I reviewed the resident's note and discussed the case with the resident. I agree with the resident's findings and plan as documented. SUBJECTIVE: OBJECTIVE: ASSESSMENT AND PLAN:
--- NOTE | 2020-03-12 20:46 | PN ---
Physical Exam: Progress Note: Please note that I accidentally deleted note from 03/10 - was able to recover with IT and post now. 03/10/20 1557 Physical Exam: SUBJECTIVE: Patient seen and examined bedside, in no acute distress, no acute events overnight OBJECTIVE: Vital Signs Period Temp Pulse Resp BP Sys/Caceres Pulse Ox 98.3 F-100.3 F 76-88 18-20 118-138/63-82 99-99 GENERAL: The patient is awake, alert, and fully oriented, in no acute distress. HEAD: Normal with no signs of trauma. EYES: PERRL, extraocular movements intact, sclera anicteric, conjunctiva clear. No ptosis. ENT: Ears normal, nares patent, oropharynx clear without exudates, moist mucous membranes. LUNGS: Breath sounds equal, clear to auscultation bilaterally, no wheezes, no crackles, no accessory muscle use. HEART: Regular rate and rhythm, S1, S2 without murmur, rub or gallop. ABDOMEN: Soft, nontender, nondistended, normoactive bowel sounds, no guarding, no rebound, no hepatosplenomegaly, no masses. EXTREMITIES: 2+ pulses, warm, well-perfused, no edema. SKIN: Warm, dry, normal turgor, no rashes or lesions noted Laboratory Results - last 24 hr 03/10/20 03/10/20 10:55 10:55 WBC 8.8 RBC 3.61 Hgb 10.2 L Hct 30.8 L MCV 85.4 MCH 28.2 MCHC 33.1 RDW 12.9 Plt Count 427 MPV 8.2 Sodium 138 Potassium 4.1 Chloride 104 Carbon Dioxide 25 Anion Gap 9 BUN 4.0 L Creatinine 0.6 Est GFR (CKD-EPI)AfAm 147.86 Est GFR (CKD-EPI)NonAf 127.58 Random Glucose 122 H Calcium 8.9 Phosphorus 3.2 Magnesium 2.3 Active Medications Generic Name Dose Route Start Last Admin Trade Name Freq PRN Reason Stop Dose Admin Acetaminophen 650 mg 03/06/20 22:18 03/08/20 06:43 Tylenol - PO 650 mg Q4H PRN Administration PAIN LEVEL 7 - 10 Enoxaparin Sodium 40 mg 03/07/20 10:00 03/10/20 09:50 Lovenox - SQ 40 mg DAILY FANTASMA Administration Dextrose/Sodium Chloride 1,000 mls @ 83 mls/hr 03/06/20 22:30 03/10/20 15:47 D5-Ns - IV 83 mls/hr ASDIR FANTASMA Administration Ertapenem 1 gm/ Sodium 50 mls @ 100 mls/hr 03/08/20 11:00 03/10/20 09:50 Chloride IVPB 100 mls/hr DAILY FANTASMA Administration Imaging: CT: 1 cm hypodense focus is seen within the left lower pole renal cortex medially which may be on the basis of somewhat more prominent versus and incipient abscess. ASSESSMENT/PLAN: 25 yo Female with no significant PMH presented with 4 days of LLQ abdominal pain, fever/chills, diarrhea, N/V, headache and lightheadedness. Her WBC count was elevated, 17.5. CT abd/pelvis was significant for acute left sided viki lonephritis with a possible abscess. She was admitted for treatment and management of acute pyelonephritis Acute pylonephritis with possible abscess - Elevated WBC of 17.5 >>> 12.4 >>> 10.3>>> 8.7>>> 8.8 - I dose Ceftriaxone Sodium 1 gm in ED - Zosyn stopped - Cultures ESBL + and switched over to ertapenem - contact precautions - Pending STI panel - Covid negative - ID Dr. Dang consulted, patient having PICC line placed tomorrow in order to receive IV antibiotics for next 10-14 days DVT prophylaxis: Lovenox 40 mg FEN: IVF: D5W-NS @ 83mls/Hr Diet: Regular Disposition: Continue to monitor on Med-Surg D/C home on 03/11 after PICC line placed Visit type - Emergency Visit Emergency Visit: Yes ED Registration Date: 03/06/20 Care time: The patient presented to the Emergency Department on the above date and was hospitalized for further evaluation of their emergent condition. - New Patient This patient is new to me today: Yes Date on this admission: 03/06/20 - Critical Care Critical Care patient: No ATTENDING PHYSICIAN STATEMENT I saw and evaluated the patient. I reviewed the resident's note and discussed the case with the resident. I agree with the resident's findings and plan as documented. SUBJECTIVE: OBJECTIVE: ASSESSMENT AND PLAN:
== END 2020-03-11 17:49 | disposition home or self-care (01) | DRG 720 ==
LOC: JER 13:39 → JERBED 18:56 → J5S 03-07 00:26
PROVIDERS: ADMIT Internal Medicine; ATTEND Internal Medicine
PROC: 02HV33Z Insertion of Infusion Device into Superior Vena Cava, Percutaneous Approach (ICD-10-PCS; principal; 2020-03-11)
DX: A41.51 Sepsis due to Escherichia coli [E. coli] (principal); E88.09 Other disorders of plasma-protein metabolism, not elsewhere classified; N15.1 Renal and perinephric abscess; N39.0 Urinary tract infection, site not specified; N10 Acute pyelonephritis; F17.210 Nicotine dependence, cigarettes, uncomplicated; F10.10 Alcohol abuse, uncomplicated; F12.90 Cannabis use, unspecified, uncomplicated; R10.32 Left lower quadrant pain; R50.9 Fever, unspecified; R19.7 Diarrhea, unspecified; E66.9 Obesity, unspecified; Z16.12 Extended spectrum beta lactamase (ESBL) resistance; E46 Unspecified protein-calorie malnutrition; Z68.35 Body mass index [BMI] 35.0-35.9, adult
CPT/HCPCS: 36415; 36569; 71045-TC-FY; 74177-TC; 77001-TC-FY; 80048; 80053; 81003; 83036; 83605; 83735; 84100; 84484; 84703; 85025; 85027; 85610; 85730; 87040; 87086; 87186; 87491; 87591; 93005; 93010; 97116-GP; 97161-GP; 99285-25; C1751; J0131; U0003